=== PATIENT | female | born 2000 | race Caucasian/White ===

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

== ENCOUNTER 2022-02-10 19:39 | Emergency (ER) | payer BC, SELFPAY ==
[2022-02-10 19:47] VITALS: BP 110/71; PULSE 75; RESP 18; TEMP 36.8; O2SAT 97; BMI 20.7
--- NOTE | 2022-02-10 21:11 | ED_ITS ---
HPI - General Adult General Chief complaint: Ear Problems Stated complaint: ? right ear infection Time Seen by Provider: 02/10/22 21:11 Source: patient Mode of arrival: ambulatory Limitations: no limitations History of Present Illness HPI narrative: Patient is a 21 year old female presenting to the emergency department today with right ear tingling. Patient states that she has a history of Lyme disease and is concerned there is something in her right ear. Patient denies any dizziness, lightheadedness, abdominal pain, nausea, vomiting, fever, chills, blurry vision, double vision, loss of vision, chest pain, difficulty breathing, shortness of breath, back pain, night sweats, pain with urination, increased urinary frequency, increased urinary urgency, blood in her urine or stool, syncope or a near syncopal episode, recent trauma or falls, bowel incontinence, bladder incontinence, bowel retention, bladder retention, or any other complaints at this time. Onset (ago): hour(s) Radiation: non-radiation Relieving factors: none Exacerbating factors: none Associated symptoms: denies other symptoms Treatments prior to arrival: none Related Data Previous Rx's Medication Instructions Recorded ondansetron HCl 4 mg tablet 4 mg PO Q6H PRN #14 tab 06/23/21 (Zofran) lorazepam 0.5 mg tablet (Ativan) 0.5 mg PO Q6-8H PRN #7 tab 11/16/21 ondansetron HCl 4 mg tablet 4 mg PO Q6H PRN #10 tab 11/16/21 Allergies Allergy/AdvReac Type Severity Reaction Status Date / Time ciprofloxacin Allergy Intermediate Agitated Verified 02/10/22 19:50 Review of Systems Constitutional: Constitutional: Reports no additional constitutional complaints, Denies chills, Denies fever(s) and Denies night sweats Eyes: Eyes: Reports no additional eye complaints, Denies blurry vision, Denies change in vision, Denies diplopia, Denies eye discharge, Denies loss of vision and Denies eye pain ENT: Denies dizziness Comments: right ear tingling Cardiovascular: Cardiovascular: Reports no additional cardiovascular complaints, Denies chest pain, Denies lightheadedness, Denies Loss of Consci ousness and Denies dyspnea Respiratory: Respiratory: Reports no additional respiratory complaints and Denies dyspnea Gastrointestinal: Gastrointestinal: Reports no additional gastrointestinal complaints, Denies abdominal pain, Denies melena, Denies hematochezia, Denies change in bowel habits and Denies change in stool character Genitourinary: Genitourinary: Denies hematuria, Denies urinary frequency, Denies dysuria, Denies urinary incontinence, Denies urinary hesitancy and Denies urinary urgency Musculoskeletal: Musculoskeletal: Reports no additional musculoskeletal complaints, Denies numbness and Denies tingling Neurologic: Denies dizziness, Denies loss of vision, Denies numbness and Denies tingling Psychiatric: Psychiatric: Reports no additional psychiatric complaints Endocrine: Endocrine: Reports no additional endocrine complaints Hematologic/Lymphatic: Hematologic/Lymphatic: Reports no additional hematologic/lymphatic complaints Allergic/Immunologic: Allergic/Immunologic: Reports no additional allergic/immunologic complaints PMFSH Past Medical History Attestation statement: The following information was validated with the patient. Source: old records reviewed Medical History Patient denies significant medical history Social History Social History Patient Tobacco Use Status: Never used Tobacco Advance Directives: No Advance Directives Information Provided: No Patient : No Physical Exam ED Vital Signs: Vital Signs - 24 hr 02/10/22 19:47 Temperature 98.3 F Pulse Rate 75 Respiratory Rate 18 Blood Pressure 110/71 Pulse Oximetry 97 BMI result Body Mass Index 20.7 Const General: cooperative, no acute distress, alert and awake Nutritional Appearance: well nourished Orientation/consciousness: patient oriented x3 Limitations: no limitations [facility] Head: Yes normal to inspection and Yes atraumatic Ears: hearing grossly normal bilaterally and external ears normal General nose exam: Normal external nose present, no nasal discharge noted and no epistaxis Face and sinus: Yes normal facial exam, No abrasion and No laceration Mouth: Normal oral and palatal mucosa present, no drooling and no muffled voice Eyes General: appearance normal, both eyes and all related structures Periorbital: periorbital findings normal Eyelids: Yes eyelids normal Conjunctivae: conjunctivae normal Pupils: Equal, round and reactive pupils present EOM: EOMs intact bilaterally Neck Neck: Yes normal visual inspection, Yes full ROM and Yes no lymphadenopathy Chest Chest palpation & inspection: normal inspection of the chest Resp Effort & Inspection: normal respiratory effort and able to speak in complete sentences Auscultation: clear to auscultation bilaterally Cardio Rate: regular rate Rhythm: regular rhythm GI Inspection: Yes normal to inspection Neuro General: patient oriented x3 and moves all extremities Cranial nerves: Yes Equal, round and reactive pupils present Cognition (Neuro): normal cognition Motor exam (neuro): 5/5 motor strength present throughout Sensory Exam: Normal double simultaneous stimulation for sensation Coordination: [id number] test normal Extrem General: Yes normal to inspection, Yes full ROM and Yes capillary refill normal Psych Appearance: grossly normal Mental Status: mental status grossly normal Affect: normal affect Attitude: cooperative Thought process: Normal thought process present Thought content: Normal thought content present Insight: Good insight present (Psych) Medical Decision Making MDM Narrative Medical decision making narrative: Patient is a 21 year old female presenting to the emergency department today with right ear tingling. Patient's physical exam was unremarkable including a normal HEENT examination. I explained my physical exam findings to the patient. I answered all questions asked by the patient. I stressed the importance of the patient taking her medication as prescribed. I stressed the importance of the patient following up with her primary care provider. I stressed the importance of the patient returning to the emergency department immediately if her symptoms were to worsen or if she were to develop any dizziness, shortness of breath, difficulty breathing, chest pain, blurry vision, loss of vision, nausea, vomiting, abdominal pain, fever, chills, back pain, or any other complaints. Patient verbalized agreement and understanding with this treatment plan and discharge. Differential Diagnosis Differential Diagnosis: ear tingling, hx of lyme disease Medical Records Medical records reviewed: Yes I reviewed the patient's medical records. Discharge Plan Discharge Clinical Impression: Hx of Lyme disease Patient Disposition: Home, Self-Care Instructions: Lyme Disease (ED) Additional Instructions: Follow up with your primary care provider. Return to the emergency department immediately if your symptoms worsen or if you develop any dizziness, shortness of breath, difficulty breathing, chest pain, blurry vision, loss of vision, nausea, vomiting, abdominal pain, fever, chills, back pain, or any other complaints. Prescriptions: No Action ondansetron HCl [Zofran] 4 mg tablet 4 mg PO Q6H PRN (Reason: nausea and vomiting) Qty: 14 0RF lorazepam [Ativan] 0.5 mg tablet 0.5 mg PO Q6-8H PRN (Reason: anxiety) Qty: 7 0RF Rx Instructions: This medication can cause drowsiness so no driving for 6 hours after taking ondansetron HCl 4 mg tablet 4 mg PO Q6H PRN (Reason: nausea and vomiting) Qty: 10 0RF Referrals: Gloria Oakes PA-C [Primary Care Provider] - (Follow up with your PCP. ) Interventions: ED Discharge Assessment Last Done: 02/10/22 21:30 Discharge Date/Time: 02/10/22 21:31 Print Language: Setswana
== END 2022-02-10 21:31 | disposition home or self-care (01) ==
PROVIDERS: Emergency Provider Emergency Medicine; PCP Physician Assistant
DX: A69.20 Lyme disease, unspecified (principal); R20.2 Paresthesia of skin; Z79.899 Other long term (current) drug therapy
CPT/HCPCS: 99282; 99283

== ENCOUNTER 2022-04-25 22:52 | Emergency (ER) | payer BC, SELFPAY ==
--- NOTE | ~2022-04-25 | CT_ITS ---
EXAMINATION: CT ABDOMEN AND PELVIS WITHOUT CONTRAST CLINICAL INFORMATION: Lower abdominal pain with leukocytosis. COMPARISON: 11/25/2019 TECHNIQUE: Multidetector volumetric imaging was performed from the superior aspect of the liver through the pubic symphysis. Sagittal and coronal reformatted images were obtained on the technologist's workstation. This CT examination was performed using dose optimization techniques as appropriate, variously including the following: *Automated exposure control *Adjustment of mA and/or kV according to patient size (this includes techniques or standardized protocols for targeted exams where dose is matched to indication/reason for exam; i.e. extremities or head) *Use of iterative reconstruction technique DLP: 311 mGy-cm FINDINGS: LUNG BASES: The visualized lung bases are unremarkable. LIVER, GALLBLADDER, AND BILIARY TREE: The liver is normal in size, shape, and attenuation. No focal hepatic lesion or biliary ductal dilatation is present. The gallbladder is unremarkable with no evidence of radiopaque gallstones, gallbladder wall thickening, or obvious pericholecystic inflammatory changes. PANCREAS: Unremarkable. SPLEEN: Unremarkable. ADRENAL GLANDS: Unremarkable. KIDNEYS AND URETERS: The kidneys are normal in size, shape, and attenuation. No hydronephrosis, hydroureter, or calculi seen. No perinephric stranding. BLADDER: Unremarkable. GASTROINTESTINAL TRACT: The stomach is unremarkable. Normal caliber small bowel. No obstruction. No colonic wall thickening or inflammatory change. The appendix is not seen. No free air. Trace pelvic free fluid. ABDOMINAL WALL: No significant hernia is appreciated. LYMPH NODES: Normal. VASCULAR: Unremarkable. PELVIC VISCERA: The uterus and adnexa are unremarkable. OSSEOUS STRUCTURES: No acute or suspicious osseous abnormality. CT/CT abdomen pelvis wo con IMPRESSION: No acute findings in the abdomen or pelvis. Trace pelvic free fluid is likely physiologic. Otherwise no inflammatory changes throughout the abdomen or pelvis. Fleischner guidelines were followed.
--- NOTE | ~2022-04-25 | XR_ITS ---
EXAMINATION: XR CHEST CLINICAL INFORMATION: Leukocytosis COMPARISON: 11/27/2015 TECHNIQUE: Frontal view of the chest was obtained. FINDINGS: Hyperexpanded lungs. No consolidation, edema, or effusion. No pneumothorax. The cardiomediastinal silhouette is within normal limits. No osseous abnormality. XR/XR chest 1V IMPRESSION: Clear lungs.
--- NOTE | 2022-04-25 22:54 | ECG_ITS ---
Test Reason : chest pain Blood Pressure : / mmHG Vent. Rate : 076 BPM Atrial Rate : 076 BPM P-R Int : 104 ms QRS Dur : 078 ms QT Int : 368 ms P-R-T Axes : 063 062 012 degrees QTc Int : 414 ms Sinus rhythm with short VA Nonspecific T wave abnormality Abnormal ECG No previous ECGs available Referred By: Generic ED Physician Electronically Signed By:Hugo Valle
[2022-04-25 22:56] VITALS: BP 130/52; PULSE 88; RESP 18; TEMP 37; O2SAT 100; BMI 19.5
[2022-04-25 23:21] LABS: Hematocrit 40.2 % (37.0-47.0); Hemoglobin 14.3 g/dl (12.0-16.0); Mean Corpuscular HGB Conc 35.6 g/dl (31.0-35.0); Mean Corpuscular Hemoglobin 31.4 pg (27.0-33.0); Mean Corpuscular Volume 88.4 fL (80.0-98.0); Mean Platelet Volume 8.4 fL (9.4-12.3); Platelet Count 236 X10*3/uL (160-400); Red Blood Count 4.55 X10*6/uL (4.20-5.50); Red Cell Distribution Width 11.9 % (11.0-16.0)
[2022-04-25 23:22] LABS: Appearance Urine HAZY; Color Urine YELLOW; Glucose Urine UA NEG (NEG); Leukocyte Esterase Urine NEG (NEG); Nitrite Urine NEG (NEG); PH 8.5 (5.0-8.0); Specific Gravity - Urine 1.015 (1.005-1.025); Urine Blood NEG (NEG); Urine Ketones 5 MG/DL (NEG); Urine Protein NEG (NEG-TRACE)
[2022-04-25 23:24] LABS: UPreg QC Valid YES; Urine Pregnancy NEGATIVE (NEGATIVE)
[2022-04-25 23:30] LABS: WBC ABN SCTR FOR CBC 1
[2022-04-25 23:35] LABS: Amphetamine Screen Urine Not Detected (Not Detect); Barbiturates, Urine Not Detected (Not Detect); Benzodiazepines Screen Urine Not Detected (Not Detect); Cannabinoid Screen Urine POSITIVE (Not Detect); Cocaine Screen Urine Not Detected (Not Detect); Fentanyl, urine Not Detected (Not Detect); Opiate Screen Urine Not Detected (Not Detect); Phencyclidine Screen Urine Not Detected (Not Detect)
[2022-04-25 23:40] LABS: Alanine Aminotransferase 9 U/L (0-31); Albumin Level 4.6 g/dL (3.5-5.0); Alkaline Phosphatase 44 U/L (39-117); Anion Gap 15 (12-20); Aspartate Amino Transferase 13 U/L (5-31); Bilirubin Total 2.8 mg/dL (0.0-1.0); Blood Urea Nitrogen 8 mg/dL (9-16); Calcium 9.4 mg/dL (8.4-10.2); Carbon Dioxide 23 mmol/L (22-29); Chloride 103 mmol/L (96-108); Creatinine Clr Calc Pharmacy 78.3; Estimated Glomerular Filt Rate > 60; Glucose Random 105 mg/dL (60-115); Potassium 3.5 mmol/L (3.3-5.1); Sodium 137 mmol/L (135-145); Total Protein 7.2 g/dL (6.5-8.0); Troponin-I High Sensitivity < 3.5 ng/L (<3.5-17.0)
[2022-04-25 23:42] LABS: Band Neutrophils Percent 2 % (3-5); Lymphocytes Absolute Manual 0.9 X10*3/uL (1.2-4.9); Lymphocytes Percent Manual 4 % (20-40); Monocytes Absolute Manual 1.8 X10*3/uL (0.1-1.2); Monocytes Percent Manual 8 % (2-11); Neutrophils Absolute Manual 20.2 X10*3/uL (2.0-8.3); Neutrophils Percent Manual 86 % (45-73)
[2022-04-25 23:44] LABS: RBC Morphology NORMAL
[2022-04-25 23:45] LABS: Platelet Estimate NORMAL (NORMAL); Platelet Morphology Comment NORMAL; Toxic Vacuolation PRESENT
--- NOTE | 2022-04-26 01:08 | ED_ITS ---
HPI - Chest Pain General Chief Complaint: Chest Pain Stated Complaint: Chest pain/Vomiting Time Seen by Provider: 04/26/22 01:08 Source: patient Mode of arrival: ambulatory Limitations: no limitations History of Present Illness HPI narrative: Patient with history of anxiety increased stress at work been feeling very weak today nauseated vomited to 2 times complaining of sore throat body aches chest pain abdominal pain low-grade fever no chills also going of sore throat no other family member sick patient has not received COVID vaccine Related Data Previous Rx's Medication Instructions Recorded ondansetron HCl 4 mg tablet 4 mg PO Q6H PRN nausea and 06/23/21 (Zofran) vomiting #14 tabs lorazepam 0.5 mg tablet (Ativan) 0.5 mg PO Q6-8H PRN anxiety #7 tabs 11/16/21 ondansetron HCl 4 mg tablet 4 mg PO Q6H PRN nausea and 11/16/21 vomiting #10 tabs Allergies Allergy/AdvReac Type Severity Reaction Status Date / Time ciprofloxacin Allergy Intermediate Agitated Verified 02/10/22 19:50 Review of Systems Review of Systems: Yes all other systems are reviewed and are negative [facility] Past Medical History Medical History Patient denies significant medical history Social History Social History Patient Tobacco Use Status: Never used Tobacco Advance Directives: No Advance Directives Information Provided: No Physical Exam Vital Signs: Vital Signs: Last Vital Signs Temp 98.6 F 04/25/22 22:56 Pulse 88 04/25/22 22:56 Resp 18 04/25/22 22:56 BP 130/52 L 04/25/22 22:56 Pulse Ox 100 04/25/22 22:56 O2 Del Method 04/25/22 22:56 BMI result Body Mass Index 19.5 Appearance: Alert. Oriented X3. No acute distress. ENT: Pharynx normal. Oral Mucosa moist Neck: Normal inspection. Neck supple. Upper cervical lymph nodes enlarged CVS: Normal heart rate and rhythm. Pulses normal. Respiratory: No respiratory distress. Equal air entry bilateral, no wheezing/rales/rhonchi Abdomen: Soft and diffuse tenderness specially in the right side no rebound tenderness or guarding Bowel sounds are present, no mass palpable, no CVA tenderness Skin: Skin warm and dry. Normal skin color. Normal skin turgor. Extremities: No lower extremity edema. No calf tenderness Neuro: Oriented X 3. MDM - Chest Pain MDM Narrative Medical decision making narrative: 0150 Patient with significant leukocytosis 23,000With left shift with toxic vacualations, will check CT scan the abdomen to rule out occult pathology patient already status post appendectomy patient's strep throat and mono spot test negative possible could be leukemoid reaction Lab Data Attestation: I reviewed the patient's lab results. Result diagrams: 04/25/22 23:12 04/25/22 23:12 Labs: Lab Results 04/25/22 04/25/22 04/25/22 Range/Units 23:12 23:12 23:12 WBC 23.0 H (4.8-10.8) X10*3/uL RBC 4.55 (4.20-5.50) X10*6/uL Hgb 14.3 (12.0-16.0) g/dl Hct 40.2 (37.0-47.0) % MCV 88.4 (80.0-98.0) fL MCH 31.4 (27.0-33.0) pg MCHC 35.6 H (31.0-35.0) g/dl RDW 11.9 (11.0-16.0) % Plt Count 236 D (160-400) X10*3/uL MPV 8.4 L (9.4-12.3) fL Immature Gran % (Auto) Cancelled Neut % (Auto) Cancelled Lymph % (Auto) Cancelled [place] % (Auto) Cancelled Eos % (Auto) Cancelled Baso % (Auto) Cancelled Lymph # (Auto) Cancelled [place] # (Auto) Cancelled Eos # (Auto) Cancelled Baso # (Auto) Cancelled Abs Immat Gran (auto) Cancelled Absolute Neuts (auto) Cancelled Absolute Nucleated RBC 0.000 (0.0-0.012) X10*3/uL Nucleated RBC % (auto) 0.0 (0.0-0.2) /100WBC Neutrophils % (Manual) 86 H (45-73) % Band Neutrophils % 2 L (3-5) % Lymphocytes % (Manual) 4 L (20-40) % Monocytes % (Manual) 8 (2-11) % Abs Neuts (Manual) 20.2 H (2.0-8.3) X10*3/uL Lymphocytes # (Manual) 0.9 L (1.2-4.9) X10*3/uL Monocytes # (Manual) 1.8 H (0.1-1.2) X10*3/uL Toxic Vacuolation PRESENT Platelet Estimate NORMAL (NORMAL) Plt Morphology Comment NORMAL RBC Morphology NORMAL Sodium 137 (135-145) mmol/L Potassium 3.5 (3.3-5.1) mmol/L Chloride 103 (96-108) mmol/L Carbon Dioxide 23 (22-29) mmol/L Anion Gap 15 (12-20) BUN 8 L (9-16) mg/dL Creatinine 0.91 (0.5-1.4) mg/dL Estim Creat Clear Calc 78.3 Estimated GFR > 60 Random Glucose 105 (60-115) mg/dL Calcium 9.4 (8.4-10.2) mg/dL Total Bilirubin 2.8 H (0.0-1.0) mg/dL AST 13 D (5-31) U/L ALT 9 (0-31) U/L Alkaline Phosphatase 44 D (39-117) U/L Troponin I High Sens < 3.5 (<3.5-17.0) ng/L C-Reactive Protein 2.12 H (< or = 0.50) mg/dL Total Protein 7.2 (6.5-8.0) g/dL Albumin 4.6 D (3.5-5.0) g/dL Urine Color Urine Appearance Urine pH (5.0-8.0) Ur Specific [place] (1.005-1.025) Urine Protein (NEG-TRACE) MG/DL Urine Glucose (UA) (NEG) MG/DL Urine Ketones (NEG) MG/DL Urine Blood (NEG) Urine Nitrite (NEG) Ur Leukocyte Esterase (NEG) Urine Test (NEGATIVE) Urine Opiates Screen (Not Detect) Urine Fentanyl Screen (Not Detect) Ur Barbiturates Screen (Not Detect) Ur Phencyclidine Scrn (Not Detect) Ur Amphetamines Screen (Not Detect) U Benzodiazepines Scrn (Not Detect) Urine Cocaine Screen (Not Detect) U Marijuana (THC) Screen (Not Detect) Monoscreen (Negative) S. pyogenes GrpA CHITRA (Negative) 04/25/22 04/25/22 04/25/22 Range/Units 23:12 23:13 23:13 WBC (4.8-10.8) X10*3/uL RBC (4.20-5.50) X10*6/uL Hgb (12.0-16.0) g/dl Hct (37.0-47.0) % MCV (80.0-98.0) fL MCH (27.0-33.0) pg MCHC (31.0-35.0) g/dl RDW (11.0-16.0) % Plt Count (160-400) X10*3/uL MPV (9.4-12.3) fL Immature Gran % (Auto) Neut % (Auto) Lymph % (Auto) [place] % (Auto) Eos % (Auto) Baso % (Auto) Lymph # (Auto) [place] # (Auto) Eos # (Auto) Baso # (Auto) Abs Immat Gran (auto) Absolute Neuts (auto) Absolute Nucleated RBC (0.0-0.012) X10*3/uL Nucleated RBC % (auto) (0.0-0.2) /100WBC Neutrophils % (Manual) (45-73) % Band Neutrophils % (3-5) % Lymphocytes % (Manual) (20-40) % Monocytes % (Manual) (2-11) % Abs Neuts (Manual) (2.0-8.3) X10*3/uL Lymphocytes # (Manual) (1.2-4.9) X10*3/uL Monocytes # (Manual) (0.1-1.2) X10*3/uL Toxic Vacuolation Platelet Estimate (NORMAL) Plt Morphology Comment RBC Morphology Sodium (135-145) mmol/L Potassium (3.3-5.1) mmol/L Chloride (96-108) mmol/L Carbon Dioxide (22-29) mmol/L Anion Gap (12-20) BUN (9-16) mg/dL Creatinine (0.5-1.4) mg/dL Estim Creat Clear Calc Estimated GFR Random Glucose (60-115) mg/dL Calcium (8.4-10.2) mg/dL Total Bilirubin (0.0-1.0) mg/dL AST (5-31) U/L ALT (0-31) U/L Alkaline Phosphatase (39-117) U/L Troponin I High Sens (<3.5-17.0) ng/L C-Reactive Protein (< or = 0.50) mg/dL Total Protein (6.5-8.0) g/dL Albumin (3.5-5.0) g/dL Urine Color YELLOW Urine Appearance HAZY Urine pH 8.5 H (5.0-8.0) Ur Specific [place] 1.015 (1.005-1.025) Urine Protein NEG (NEG-TRACE) MG/DL Urine Glucose (UA) NEG (NEG) MG/DL Urine Ketones 5 (NEG) MG/DL Urine Blood NEG (NEG) Urine Nitrite NEG (NEG) Ur Leukocyte Esterase NEG (NEG) Urine Test NEGATIVE (NEGATIVE) Urine Opiates Screen (Not Detect) Urine Fentanyl Screen (Not Detect) Ur Barbiturates Screen (Not Detect) Ur Phencyclidine Scrn (Not Detect) Ur Amphetamines Screen (Not Detect) U Benzodiazepines Scrn (Not Detect) Urine Cocaine Screen (Not Detect) U Marijuana (THC) Screen (Not Detect) Monoscreen Negative (Negative) S. pyogenes GrpA CHITRA (Negative) 04/25/22 04/26/22 Range/Units 23:13 01:32 WBC (4.8-10.8) X10*3/uL RBC (4.20-5.50) X10*6/uL Hgb (12.0-16.0) g/dl Hct (37.0-47.0) % MCV (80.0-98.0) fL MCH (27.0-33.0) pg MCHC (31.0-35.0) g/dl RDW (11.0-16.0) % Plt Count (160-400) X10*3/uL MPV (9.4-12.3) fL Immature Gran % (Auto) Neut % (Auto) Lymph % (Auto) [place] % (Auto) Eos % (Auto) Baso % (Auto) Lymph # (Auto) [place] # (Auto) Eos # (Auto) Baso # (Auto) Abs Immat Gran (auto) Absolute Neuts (auto) Absolute Nucleated RBC (0.0-0.012) X10*3/uL Nucleated RBC % (auto) (0.0-0.2) /100WBC Neutrophils % (Manual) (45-73) % Band Neutrophils % (3-5) % Lymphocytes % (Manual) (20-40) % Monocytes % (Manual) (2-11) % Abs Neuts (Manual) (2.0-8.3) X10*3/uL Lymphocytes # (Manual) (1.2-4.9) X10*3/uL Monocytes # (Manual) (0.1-1.2) X10*3/uL Toxic Vacuolation Platelet Estimate (NORMAL) Plt Morphology Comment RBC Morphology Sodium (135-145) mmol/L Potassium (3.3-5.1) mmol/L Chloride (96-108) mmol/L Carbon Dioxide (22-29) mmol/L Anion Gap (12-20) BUN (9-16) mg/dL Creatinine (0.5-1.4) mg/dL Estim Creat Clear Calc Estimated GFR Random Glucose (60-115) mg/dL Calcium (8.4-10.2) mg/dL Total Bilirubin (0.0-1.0) mg/dL AST (5-31) U/L ALT (0-31) U/L Alkaline Phosphatase (39-117) U/L Troponin I High Sens (<3.5-17.0) ng/L C-Reactive Protein (< or = 0.50) mg/dL Total Protein (6.5-8.0) g/dL Albumin (3.5-5.0) g/dL Urine Color Urine Appearance Urine pH (5.0-8.0) Ur Specific [place] (1.005-1.025) Urine Protein (NEG-TRACE) MG/DL Urine Glucose (UA) (NEG) MG/DL Urine Ketones (NEG) MG/DL Urine Blood (NEG) Urine Nitrite (NEG) Ur Leukocyte Esterase (NEG) Urine Test (NEGATIVE) Urine Opiates Screen Not Detected (Not Detect) Urine Fentanyl Screen Not Detected (Not Detect) Ur Barbiturates Screen Not Detected (Not Detect) Ur Phencyclidine Scrn Not Detected (Not Detect) Ur Amphetamines Screen Not Detected (Not Detect) U Benzodiazepines Scrn Not Detected (Not Detect) Urine Cocaine Screen Not Detected (Not Detect) U Marijuana (THC) Screen POSITIVE H (Not Detect) Monoscreen (Negative) S. pyogenes GrpA CHITRA Negative (Negative) Discharge Plan Discharge Clinical Impression: Leukocytosis, Abdominal pain Patient Disposition: Still a Patient Prescriptions: No Action ondansetron HCl [Zofran] 4 mg tablet 4 mg PO Q6H PRN (Reason: nausea and vomiting) Qty: 14 0RF lorazepam [Ativan] 0.5 mg tablet 0.5 mg PO Q6-8H PRN (Reason: anxiety) Qty: 7 0RF Rx Instructions: This medication can cause drowsiness so no driving for 6 hours after taking ondansetron HCl 4 mg tablet 4 mg PO Q6H PRN (Reason: nausea and vomiting) Qty: 10 0RF
[2022-04-26 01:30] LABS: Monotest Negative (Negative)
[2022-04-26] MEDS: 0.9 % Sodium Chloride 1,000 ML 999 ML IV (01:33)
[2022-04-26] MEDS: ondansetron HCL 4 MG/2 ML VIAL IVPUSH (01:33)
[2022-04-26 01:35] LABS: C Reactive Protein 2.12 mg/dL (< or = 0.50)
[2022-04-26 01:54] LABS: Strep A Nucleic Acid Negative (Negative)
[2022-04-26] MEDS: LORazepam 2 MG/ML VIAL 0.5 MG IVPUSH (01:57)
[2022-04-26 02:00] VITALS: PULSE 81
[2022-04-26] MEDS: Piperacillin Sodium/Tazobactam 3.375 GM in 0.9 % Sodium Chloride 50 ML IV (02:13)
[2022-04-26 02:18] LABS: Lipase 19 U/L (8-78)
[2022-04-26 02:33] LABS: Lactic Acid 0.8 mmol/L (0.5-2.0)
--- NOTE | 2022-04-26 04:38 | ED_ITS ---
HPI - Chest Pain General Chief Complaint: Chest Pain Stated Complaint: Chest pain/Vomiting Time Seen by Provider: 04/26/22 01:08 Source: patient Mode of arrival: ambulatory Limitations: no limitations Related Data Previous Rx's Medication Instructions Recorded ondansetron HCl 4 mg tablet 4 mg PO Q6H PRN nausea and 06/23/21 (Zofran) vomiting #14 tabs lorazepam 0.5 mg tablet (Ativan) 0.5 mg PO Q6-8H PRN anxiety #7 tabs 11/16/21 ondansetron HCl 4 mg tablet 4 mg PO Q6H PRN nausea and 11/16/21 vomiting #10 tabs ondansetron 4 mg disintegrating 4 mg PO Q8H PRN nausea and 04/26/22 tablet vomiting #7 tabs Allergies Allergy/AdvReac Type Severity Reaction Status Date / Time ciprofloxacin Allergy Intermediate Agitated Verified 02/10/22 19:50 [facility] Past Medical History Medical History Patient denies significant medical history Social History Social History Patient Tobacco Use Status: Never used Tobacco Advance Directives: No Advance Directives Information Provided: No Physical Exam Vital Signs: Vital Signs: Last Vital Signs Temp 99.8 F 04/26/22 04:41 Pulse 92 04/26/22 04:41 Resp 18 04/26/22 04:41 BP 106/66 04/26/22 04:41 Pulse Ox 96 04/26/22 04:41 O2 Del Method 04/26/22 04:41 BMI result Body Mass Index 19.5 MDM - Chest Pain Lab Data Result diagrams: 04/25/22 23:12 04/25/22 23:12 Labs: Lab Results 04/25/22 04/25/22 04/25/22 Range/Units 23:12 23:12 23:12 WBC 23.0 H (4.8-10.8) X10*3/uL RBC 4.55 (4.20-5.50) X10*6/uL Hgb 14.3 (12.0-16.0) g/dl Hct 40.2 (37.0-47.0) % MCV 88.4 (80.0-98.0) fL MCH 31.4 (27.0-33.0) pg MCHC 35.6 H (31.0-35.0) g/dl RDW 11.9 (11.0-16.0) % Plt Count 236 D (160-400) X10*3/uL MPV 8.4 L (9.4-12.3) fL Immature Gran % (Auto) Cancelled Neut % (Auto) Cancelled Lymph % (Auto) Cancelled [place] % (Auto) Cancelled Eos % (Auto) Cancelled Baso % (Auto) Cancelled Lymph # (Auto) Cancelled [place] # (Auto) Cancelled Eos # (Auto) Cancelled Baso # (Auto) Cancelled Abs Immat Gran (auto) Cancelled Absolute Neuts (auto) Cancelled Absolute Nucleated RBC 0.000 (0.0-0.012) X10*3/uL Nucleated RBC % (auto) 0.0 (0.0-0.2) /100WBC Neutrophils % (Manual) 86 H (45-73) % Band Neutrophils % 2 L (3-5) % Lymphocytes % (Manual) 4 L (20-40) % Monocytes % (Manual) 8 (2-11) % Abs Neuts (Manual) 20.2 H (2.0-8.3) X10*3/uL Lymphocytes # (Manual) 0.9 L (1.2-4.9) X10*3/uL Monocytes # (Manual) 1.8 H (0.1-1.2) X10*3/uL Toxic Vacuolation PRESENT Platelet Estimate NORMAL (NORMAL) Plt Morphology Comment NORMAL RBC Morphology NORMAL Sodium 137 (135-145) mmol/L Potassium 3.5 (3.3-5.1) mmol/L Chloride 103 (96-108) mmol/L Carbon Dioxide 23 (22-29) mmol/L Anion Gap 15 (12-20) BUN 8 L (9-16) mg/dL Creatinine 0.91 (0.5-1.4) mg/dL Estim Creat Clear Calc 78.3 Estimated GFR > 60 Random Glucose 105 (60-115) mg/dL Lactic Acid (0.5-2.0) mmol/L Calcium 9.4 (8.4-10.2) mg/dL Total Bilirubin 2.8 H (0.0-1.0) mg/dL AST 13 D (5-31) U/L ALT 9 (0-31) U/L Alkaline Phosphatase 44 D (39-117) U/L Troponin I High Sens < 3.5 (<3.5-17.0) ng/L C-Reactive Protein 2.12 H (< or = 0.50) mg/dL Total Protein 7.2 (6.5-8.0) g/dL Albumin 4.6 D (3.5-5.0) g/dL Lipase 19 (8-78) U/L Urine Color Urine Appearance Urine pH (5.0-8.0) Ur Specific [place] (1.005-1.025) Urine Protein (NEG-TRACE) MG/DL Urine Glucose (UA) (NEG) MG/DL Urine Ketones (NEG) MG/DL Urine Blood (NEG) Urine Nitrite (NEG) Ur Leukocyte Esterase (NEG) Urine Test (NEGATIVE) Urine Opiates Screen (Not Detect) Urine Fentanyl Screen (Not Detect) Ur Barbiturates Screen (Not Detect) Ur Phencyclidine Scrn (Not Detect) Ur Amphetamines Screen (Not Detect) U Benzodiazepines Scrn (Not Detect) Urine Cocaine Screen (Not Detect) U Marijuana (THC) Screen (Not Detect) Monoscreen (Negative) S. pyogenes GrpA CHITRA (Negative) 04/25/22 04/25/22 04/25/22 Range/Units 23:12 23:13 23:13 WBC (4.8-10.8) X10*3/uL RBC (4.20-5.50) X10*6/uL Hgb (12.0-16.0) g/dl Hct (37.0-47.0) % MCV (80.0-98.0) fL MCH (27.0-33.0) pg MCHC (31.0-35.0) g/dl RDW (11.0-16.0) % Plt Count (160-400) X10*3/uL MPV (9.4-12.3) fL Immature Gran % (Auto) Neut % (Auto) Lymph % (Auto) [place] % (Auto) Eos % (Auto) Baso % (Auto) Lymph # (Auto) [place] # (Auto) Eos # (Auto) Baso # (Auto) Abs Immat Gran (auto) Absolute Neuts (auto) Absolute Nucleated RBC (0.0-0.012) X10*3/uL Nucleated RBC % (auto) (0.0-0.2) /100WBC Neutrophils % (Manual) (45-73) % Band Neutrophils % (3-5) % Lymphocytes % (Manual) (20-40) % Monocytes % (Manual) (2-11) % Abs Neuts (Manual) (2.0-8.3) X10*3/uL Lymphocytes # (Manual) (1.2-4.9) X10*3/uL Monocytes # (Manual) (0.1-1.2) X10*3/uL Toxic Vacuolation Platelet Estimate (NORMAL) Plt Morphology Comment RBC Morphology Sodium (135-145) mmol/L Potassium (3.3-5.1) mmol/L Chloride (96-108) mmol/L Carbon Dioxide (22-29) mmol/L Anion Gap (12-20) BUN (9-16) mg/dL Creatinine (0.5-1.4) mg/dL Estim Creat Clear Calc Estimated GFR Random Glucose (60-115) mg/dL Lactic Acid (0.5-2.0) mmol/L Calcium (8.4-10.2) mg/dL Total Bilirubin (0.0-1.0) mg/dL AST (5-31) U/L ALT (0-31) U/L Alkaline Phosphatase (39-117) U/L Troponin I High Sens (<3.5-17.0) ng/L C-Reactive Protein (< or = 0.50) mg/dL Total Protein (6.5-8.0) g/dL Albumin (3.5-5.0) g/dL Lipase (8-78) U/L Urine Color YELLOW Urine Appearance HAZY Urine pH 8.5 H (5.0-8.0) Ur Specific [place] 1.015 (1.005-1.025) Urine Protein NEG (NEG-TRACE) MG/DL Urine Glucose (UA) NEG (NEG) MG/DL Urine Ketones 5 (NEG) MG/DL Urine Blood NEG (NEG) Urine Nitrite NEG (NEG) Ur Leukocyte Esterase NEG (NEG) Urine Test NEGATIVE (NEGATIVE) Urine Opiates Screen (Not Detect) Urine Fentanyl Screen (Not Detect) Ur Barbiturates Screen (Not Detect) Ur Phencyclidine Scrn (Not Detect) Ur Amphetamines Screen (Not Detect) U Benzodiazepines Scrn (Not Detect) Urine Cocaine Screen (Not Detect) U Marijuana (THC) Screen (Not Detect) Monoscreen Negative (Negative) S. pyogenes GrpA CHITRA (Negative) 04/25/22 04/26/22 04/26/22 Range/Units 23:13 01:32 02:11 WBC (4.8-10.8) X10*3/uL RBC (4.20-5.50) X10*6/uL Hgb (12.0-16.0) g/dl Hct (37.0-47.0) % MCV (80.0-98.0) fL MCH (27.0-33.0) pg MCHC (31.0-35.0) g/dl RDW (11.0-16.0) % Plt Count (160-400) X10*3/uL MPV (9.4-12.3) fL Immature Gran % (Auto) Neut % (Auto) Lymph % (Auto) [place] % (Auto) Eos % (Auto) Baso % (Auto) Lymph # (Auto) [place] # (Auto) Eos # (Auto) Baso # (Auto) Abs Immat Gran (auto) Absolute Neuts (auto) Absolute Nucleated RBC (0.0-0.012) X10*3/uL Nucleated RBC % (auto) (0.0-0.2) /100WBC Neutrophils % (Manual) (45-73) % Band Neutrophils % (3-5) % Lymphocytes % (Manual) (20-40) % Monocytes % (Manual) (2-11) % Abs Neuts (Manual) (2.0-8.3) X10*3/uL Lymphocytes # (Manual) (1.2-4.9) X10*3/uL Monocytes # (Manual) (0.1-1.2) X10*3/uL Toxic Vacuolation Platelet Estimate (NORMAL) Plt Morphology Comment RBC Morphology Sodium (135-145) mmol/L Potassium (3.3-5.1) mmol/L Chloride (96-108) mmol/L Carbon Dioxide (22-29) mmol/L Anion Gap (12-20) BUN (9-16) mg/dL Creatinine (0.5-1.4) mg/dL Estim Creat Clear Calc Estimated GFR Random Glucose (60-115) mg/dL Lactic Acid 0.8 (0.5-2.0) mmol/L Calcium (8.4-10.2) mg/dL Total Bilirubin (0.0-1.0) mg/dL AST (5-31) U/L ALT (0-31) U/L Alkaline Phosphatase (39-117) U/L Troponin I High Sens (<3.5-17.0) ng/L C-Reactive Protein (< or = 0.50) mg/dL Total Protein (6.5-8.0) g/dL Albumin (3.5-5.0) g/dL Lipase (8-78) U/L Urine Color Urine Appearance Urine pH (5.0-8.0) Ur Specific [place] (1.005-1.025) Urine Protein (NEG-TRACE) MG/DL Urine Glucose (UA) (NEG) MG/DL Urine Ketones (NEG) MG/DL Urine Blood (NEG) Urine Nitrite (NEG) Ur Leukocyte Esterase (NEG) Urine Test (NEGATIVE) Urine Opiates Screen Not Detected (Not Detect) Urine Fentanyl Screen Not Detected (Not Detect) Ur Barbiturates Screen Not Detected (Not Detect) Ur Phencyclidine Scrn Not Detected (Not Detect) Ur Amphetamines Screen Not Detected (Not Detect) U Benzodiazepines Scrn Not Detected (Not Detect) Urine Cocaine Screen Not Detected (Not Detect) U Marijuana (THC) Screen POSITIVE H (Not Detect) Monoscreen (Negative) S. pyogenes GrpA CHITRA Negative (Negative) Discharge Plan Discharge Clinical Impression: Leukocytosis, Abdominal pain Patient Disposition: Home, Self-Care Instructions: Abdominal Pain (ED) Additional Instructions: Follow-up with your primary care provider on Thursday morning. Return to the ER for worsening symptoms. Prescriptions: New ondansetron 4 mg tablet,disintegrating 4 mg PO Q8H PRN (Reason: nausea and vomiting) Qty: 7 0RF No Action ondansetron HCl [Zofran] 4 mg tablet 4 mg PO Q6H PRN (Reason: nausea and vomiting) Qty: 14 0RF lorazepam [Ativan] 0.5 mg tablet 0.5 mg PO Q6-8H PRN (Reason: anxiety) Qty: 7 0RF Rx Instructions: This medication can cause drowsiness so no driving for 6 hours after taking ondansetron HCl 4 mg tablet 4 mg PO Q6H PRN (Reason: nausea and vomiting) Qty: 10 0RF Stand Alone Forms: Work/School Release Interventions: ED Discharge Assessment Last Done: 04/26/22 06:35 Discharge Date/Time: 04/26/22 06:35
[2022-04-26 04:41] VITALS: BP 106/66; PULSE 92; RESP 18; TEMP 37.7; O2SAT 96
[2022-04-26] MEDS: diphenhydrAMINE HCL 50 MG/ML VIAL 25 MG IVPUSH (04:43)
[2022-04-26] MEDS: Metoclopramide HCl 10 MG/2 ML VIAL IVPUSH (04:43)
--- NOTE | 2022-04-26 05:04 | PC.NURSE ---
Pt to be dischaqrged home when she started to vomit again, Dr Allred made aware, see MAR.
== END 2022-04-26 06:35 | disposition home or self-care (01) ==
PROVIDERS: Emergency Provider Internal Medicine
DX: R07.89 Other chest pain (principal); D72.829 Elevated white blood cell count, unspecified; R11.10 Vomiting, unspecified; R50.9 Fever, unspecified; Z20.822 Contact with and (suspected) exposure to COVID-19; Z79.899 Other long term (current) drug therapy
CPT/HCPCS: 36415; 71045; 74176; 80053; 80307; 81003; 81025; 83605; 83690; 84484; 85007; 85027; 86140; 86308; 87040; 87651; 93005; 96361; 96374; 96375; 99284; J1200; J2060; J2405; J2543; J2765

== ENCOUNTER 2022-05-21 06:00 | Emergency (ER) | payer BC, SELFPAY ==
--- NOTE | 2022-05-21 | ECG_ITS ---
Test Reason : cp Blood Pressure : / mmHG Vent. Rate : 089 BPM Atrial Rate : 089 BPM P-R Int : 128 ms QRS Dur : 080 ms QT Int : 348 ms P-R-T Axes : 074 072 001 degrees QTc Int : 423 ms Normal sinus rhythm Possible Left atrial enlargement Nonspecific T wave abnormality Abnormal ECG When compared with ECG of 25-APR-2022 22:49, No significant change was found Referred By: Generic ED Physician Electronically Signed By:EDU MARQUEZ MD
--- NOTE | ~2022-05-21 | XR_ITS ---
EXAMINATION: XR CHEST CLINICAL INFORMATION: Chest pain COMPARISON: None TECHNIQUE: Frontal view of the chest was obtained. FINDINGS: Lungs grossly clear. Heart and pulmonary vessels normal. XR/XR chest 1V IMPRESSION: No active disease.
[2022-05-21 06:04] VITALS: BP 110/69; PULSE 103; RESP 16; TEMP 37.3; O2SAT 97; BMI 19.5
[2022-05-21 07:08] VITALS: BP 110/53; PULSE 89; RESP 14; TEMP 37.1; O2SAT 99
--- NOTE | 2022-05-21 07:23 | ED.CHESTPAIN ---
HPI - Chest Pain General Chief Complaint: Chest Pain Stated Complaint: Vomiting Time Seen by Provider: 05/21/22 07:23 Source: patient and family (Mother) Mode of arrival: ambulatory Limitations: other (Anxiety) History of Present Illness HPI narrative: 21-year-old female who presents emergency department for evaluation of chest pain, nausea and vomiting. The patient has been having chest tightness for approximately 1 week, the mother states that she is being worked up for this chest pain and is going to get an outpatient stress test. The patient states that last night she developed nausea and vomiting. She states she has been vomiting continuously. On presentation the patient is actively vomiting and appears to be very anxious. She is not able to give a good history secondary to her distress Related Data Previous Rx's Medication Instructions Recorded ondansetron HCl 4 mg tablet 4 mg PO Q6H PRN nausea and 06/23/21 (Zofran) vomiting #14 tabs lorazepam 0.5 mg tablet (Ativan) 0.5 mg PO Q6-8H PRN anxiety #7 tabs 11/16/21 ondansetron HCl 4 mg tablet 4 mg PO Q6H PRN nausea and 11/16/21 vomiting #10 tabs ondansetron 4 mg disintegrating 4 mg PO Q8H PRN nausea and 04/26/22 tablet vomiting #7 tabs lorazepam 0.5 mg tablet (Ativan) 0.5 mg PO TID PRN anxiety #10 tabs 05/21/22 ondansetron 4 mg disintegrating 4 mg PO Q6-8H PRN nausea and 05/21/22 tablet vomiting #20 tabs Allergies Allergy/AdvReac Type Severity Reaction Status Date / Time ciprofloxacin Allergy Intermediate Agitated Verified 02/10/22 19:50 Review of Systems Review of Systems: Yes all other systems are reviewed and are negative [facility] Past Medical History [facility] Narrative: Past medical history: Lyme disease, anxiety. Past surgical history: None. Social history: She denies tobacco and alcohol use. She does smoke marijuana. Medical History Patient denies significant medical history Social History Social History Patient Tobacco Use Status: Never used Tobacco Substance Use Type: Marijuana Substance Use Frequency: Occasionally Last Used Substance: Hours (ago) Advance Directives: No Advance Directives Information Provided: No Physical Exam Vital Signs: Vital Signs: Last Vital Signs Temp 99.1 F 05/21/22 10:21 Pulse 92 05/21/22 10:21 Resp 18 05/21/22 10:21 BP 117/64 05/21/22 10:21 Pulse Ox 98 05/21/22 10:21 O2 Del Method 05/21/22 10:21 BMI result Body Mass Index 19.5 Const: Other: Awake, alert, female patient she is standing on the side of the bed, actively dry heaving, she is very anxious appearing, she is having difficulty answering questions secondary to stress, she defers to her mother the answer questions HEENT: Head: Yes normal to inspection, Yes normocephalic and Yes atraumatic Ears: external ears normal General nose exam: Normal external nose present Face and sinus: Yes normal facial exam Mouth: Normal oral and palatal mucosa present Throat: Yes posterior oropharynx normal Eyes: General: appearance normal, both eyes and all related structures Pupils: Equal, round and reactive pupils present Neck: Neck: Yes normal visual inspection, Yes no lymphadenopathy, Yes trachea midline and Yes supple Chest: Chest palpation & inspection: normal inspection of the chest and tenderness sternum Resp: Effort & Inspection: normal respiratory effort and able to speak in complete sentences Auscultation: clear to auscultation bilaterally Cardio: Rate: regular rate Rhythm: regular rhythm Heart sounds: S1 normal heart sound present, S2 normal heart sound present and no murmurs GI: Inspection: Yes normal to inspection Palpation (GI): Soft to palpation, Tenderness to palpation present (GI) in the epigastrum and no guarding Auscultation: normal bowel sounds : General: Yes no CVA tenderness Back/Spine/Pelvis: Back: no CVA tenderness Skin: General skin exam: no rashes or lesions noted Neuro: Cranial nerves: Yes CN's II-XII intact bilaterally and Yes Equal, round and reactive pupils present Cognition (Neuro): normal cognition Motor exam (neuro): 5/5 motor strength present throughout Extrem: General: Yes normal to inspection Psych: Appearance: grossly normal Speech and movement: Normal speech and movement present Affect: normal affect Attitude: cooperative Thought process: Normal thought process present Thought content: Normal thought content present Course Course Course Narrative: 21-year-old female who presents emergency department for evaluation of chest pain x1 week and nausea and vomiting since last night. Patient states that the vomiting has been continuous. Patient does appear to be very anxious on presentation. Patient's vital signs revealed tachycardia of 103 otherwise unremarkable. Sternal chest tenderness in epigastric tenderness. I did order laboratory evaluation to include CBC, CMP, lipase, urinalysis, urine drug screen, urine test. Patient was ordered to get Benadryl 50 mg IV, Reglan 10 mg IV and Toradol 15 mg IV. 1036: The patient is feeling better after the above treatment, she states she still is having nausea and a headache. The patient's mother states that often Ativan helps with her nausea and other symptoms. Patient was ordered to get Ativan 1 mg orally, Zofran 4 mg IV and Tylenol 975 orally for her headache. The patient will be discharged home with a prescription for Zofran and a very limited prescription for Ativan MDM - Chest Pain Medical Records Data Attestation: I reviewed the patient's medical records. Lab Data Attestation: I reviewed the patient's lab results. Result diagrams: 05/21/22 07:46 05/21/22 07:46 Labs: Lab Results 05/21/22 05/21/22 05/21/22 Range/Units 07:46 07:46 07:46 WBC 12.4 H (4.8-10.8) X10*3/uL RBC 4.35 (4.20-5.50) X10*6/uL Hgb 13.5 (12.0-16.0) g/dl Hct 39.2 (37.0-47.0) % MCV 90.1 (80.0-98.0) fL MCH 31.0 (27.0-33.0) pg MCHC 34.4 (31.0-35.0) g/dl RDW 12.2 (11.0-16.0) % Plt Count 241 (160-400) X10*3/uL MPV 8.4 L (9.4-12.3) fL Immature Gran % (Auto) 0.8 H (0.0-0.4) % Neut % (Auto) 87.8 H (45-73) % Lymph % (Auto) 3.5 L (20-40) % Appling % (Auto) 7.7 (2-11) % Eos % (Auto) 0.0 (0-4) % Baso % (Auto) 0.2 (0-2) % Lymph # (Auto) 0.4 L (1.2-4.9) X10*3/uL Appling # (Auto) 1.0 (0.1-1.2) X10*3/uL Eos # (Auto) 0.0 (0.0-0.4) X10*3/uL Baso # (Auto) 0.0 (0.0-0.2) X10*3/uL Abs Immat Gran (auto) 0.10 H (0.00-0.03) X10*3/uL Absolute Neuts (auto) 10.9 H (2.0-8.3) x10*3/uL Absolute Nucleated RBC 0.000 (0.0-0.012) X10*3/uL Nucleated RBC % (auto) 0.0 (0.0-0.2) /100WBC Sodium 141 (135-145) mmol/L Potassium 3.6 (3.3-5.1) mmol/L Chloride 106 (96-108) mmol/L Carbon Dioxide 23 (22-29) mmol/L Anion Gap 16 (12-20) BUN 6 L (9-16) mg/dL Creatinine 0.80 (0.5-1.4) mg/dL Estim Creat Clear Calc 89.1 Estimated GFR > 60 Random Glucose 111 (60-115) mg/dL Calcium 9.0 (8.4-10.2) mg/dL Total Bilirubin 1.3 H (0.0-1.0) mg/dL AST 13 (5-31) U/L ALT 9 (0-31) U/L Alkaline Phosphatase 42 (39-117) U/L Troponin I High Sens < 3.5 (<3.5-17.0) ng/L Total Protein 7.0 (6.5-8.0) g/dL Albumin 4.4 (3.5-5.0) g/dL Lipase 9 (8-78) U/L Ethyl Alcohol < 10 mg/dL ECG Data ECG #1: Attestation: I personally reviewed and interpreted this ECG as follows: Interpretation: 0738: Normal sinus rhythm rate of 90, normal MA interval, QRS duration QTC interval, inverted T-wave in V1 and V3 no ST segment elevation, no ST segment depression, no PACs, no PVCs no Q-waves, this is a normal EKG. Discharge Plan Discharge Clinical Impression: Chest pain, Vomiting, Anxiety Patient Disposition: Home, Self-Care Instructions: Acute Nausea and Vomiting (ED) Additional Instructions: Your blood work was unremarkable. Your chest x-ray was normal. Your 12 EKG was unremarkable. Take Zofran ODT 4 mg pills, 1 pill dissolved in your mouth every 8 hours as needed for nausea and vomiting. Take ibuprofen 200 mg pills, 3 pills every 6 hours as needed for pain. Take Tylenol (acetaminophen) 500 mg pills, 2 pills every 4 to 6 hours as needed for pain. Take Ativan 1 mg pills, 1 pill every 6 hours as needed for nausea, vomiting or anxiety. You can take this medication was Zofran. This medication is a benzodiazepine which can be addicting, if your concerned about addiction you can ask the pharmacist for less pills or you do not have to get the prescription filled. Follow-up with your doctor in 2 days. Please return to the emergency department if your symptoms get worse or if you develop any symptoms that are concerning to you. Prescriptions: New lorazepam [Ativan] 0.5 mg tablet 0.5 mg PO TID PRN (Reason: anxiety) Qty: 10 0RF Rx Instructions: patient may ask for partial fill ondansetron 4 mg tablet,disintegrating 4 mg PO Q6-8H PRN (Reason: nausea and vomiting) Qty: 20 0RF No Action ondansetron HCl [Zofran] 4 mg tablet 4 mg PO Q6H PRN (Reason: nausea and vomiting) Qty: 14 0RF lorazepam [Ativan] 0.5 mg tablet 0.5 mg PO Q6-8H PRN (Reason: anxiety) Qty: 7 0RF Rx Instructions: This medication can cause drowsiness so no driving for 6 hours after taking ondansetron HCl 4 mg tablet 4 mg PO Q6H PRN (Reason: nausea and vomiting) Qty: 10 0RF ondansetron 4 mg tablet,disintegrating 4 mg PO Q8H PRN (Reason: nausea and vomiting) Qty: 7 0RF
--- NOTE | 2022-05-21 07:28 | ECG_ITS ---
Test Reason : chest pain Blood Pressure : / mmHG Vent. Rate : 090 BPM Atrial Rate : 090 BPM P-R Int : 126 ms QRS Dur : 086 ms QT Int : 360 ms P-R-T Axes : 062 047 024 degrees QTc Int : 440 ms Normal sinus rhythm with sinus arrhythmia Non specific T wave changes When compared with ECG of 21-MAY-2022 06:17, No significant changes seen Referred By: Delmer Ya Electronically Signed By:EDU MARQUEZ MD
[2022-05-21 07:54] LABS: MANUAL DIFF FLAG NO
[2022-05-21] MEDS: diphenhydrAMINE HCL 50 MG/ML VIAL IVPUSH (08:01)
[2022-05-21] MEDS: Metoclopramide HCl 10 MG/2 ML VIAL IVPUSH (08:01)
[2022-05-21] MEDS: Ketorolac Tromethamine 15 MG/ML VIAL IVPUSH (08:01)
[2022-05-21] MEDS: 0.9 % Sodium Chloride 1,000 ML 999 ML IV (08:02)
[2022-05-21 08:04] LABS: Basophils Percent Auto 0.2 % (0-2); Hematocrit 39.2 % (37.0-47.0); Hemoglobin 13.5 g/dl (12.0-16.0); Imm Gran Pct Auto 0.8 % (0.0-0.4); Lymphocytes Absolute Auto 0.4 X10*3/uL (1.2-4.9); Lymphocytes Percent Auto 3.5 % (20-40); Mean Corpuscular HGB Conc 34.4 g/dl (31.0-35.0); Mean Corpuscular Volume 90.1 fL (80.0-98.0); Mean Platelet Volume 8.4 fL (9.4-12.3); Monocytes Percent Auto 7.7 % (2-11); Neutrophils Absolute Auto 10.9 x10*3/uL (2.0-8.3); Neutrophils Percent Auto 87.8 % (45-73); Platelet Count 241 X10*3/uL (160-400); Red Blood Count 4.35 X10*6/uL (4.20-5.50); Red Cell Distribution Width 12.2 % (11.0-16.0); White Blood Count 12.4 X10*3/uL (4.8-10.8)
[2022-05-21 08:16] LABS: Alanine Aminotransferase 9 U/L (0-31); Albumin Level 4.4 g/dL (3.5-5.0); Alkaline Phosphatase 42 U/L (39-117); Anion Gap 16 (12-20); Aspartate Amino Transferase 13 U/L (5-31); Bilirubin Total 1.3 mg/dL (0.0-1.0); Blood Urea Nitrogen 6 mg/dL (9-16); Carbon Dioxide 23 mmol/L (22-29); Chloride 106 mmol/L (96-108); Creatinine Clr Calc Pharmacy 89.1; Estimated Glomerular Filt Rate > 60; Ethanol < 10 mg/dL; Glucose Random 111 mg/dL (60-115); Lipase 9 U/L (8-78); Potassium 3.6 mmol/L (3.3-5.1); Sodium 141 mmol/L (135-145)
[2022-05-21 08:22] LABS: Troponin-I High Sensitivity < 3.5 ng/L (<3.5-17.0)
[2022-05-21 10:21] VITALS: BP 117/64; PULSE 92; RESP 18; TEMP 37.3; O2SAT 98
--- NOTE | 2022-05-21 10:25 | PC.NURSE ---
denies any chest pain. occ nausea but does have a headache and is thirsty
[2022-05-21] MEDS: Acetaminophen 325 MG TABLET 975 MG PO (10:49)
[2022-05-21] MEDS: LORazepam 1 MG TABLET PO (10:50)
[2022-05-21] MEDS: ondansetron HCL 4 MG/2 ML VIAL IVPUSH (10:50)
--- NOTE | 2022-05-21 11:03 | PC.NURSE ---
urine not obtained, could not Pee
[2022-05-21 11:19] VITALS: BP 143/86; PULSE 110; RESP 19; O2SAT 98
== END 2022-05-21 11:16 | disposition home or self-care (01) ==
PROVIDERS: Emergency Provider Emergency Medicine Emergency Medical Services; PCP Student in an Organized Health Care Education/Training Program
DX: R07.89 Other chest pain (principal); F41.1 Generalized anxiety disorder; F43.0 Acute stress reaction; R11.2 Nausea with vomiting, unspecified; Z79.899 Other long term (current) drug therapy
CPT/HCPCS: 36415; 71045; 80053; 82077; 83690; 84484; 85025; 87040; 93005; 96361; 96374; 96375; 99284; 99285; J1200; J1885; J2405; J2765

== ENCOUNTER 2023-01-25 13:37 | Emergency (ER) | payer BC, SELFPAY ==
[2023-01-25] VITALS (7 sets, daily range): BP systolic 100–114; BP diastolic 48–76; PULSE 53–100; RESP 16–18; TEMP 36–37.1; O2SAT 96–99; BMI 17.6
[2023-01-25 14:22] LABS: MANUAL DIFF FLAG NO
[2023-01-25] MEDS: 0.9 % Sodium Chloride 1,000 ML 999 ML IV (14:22)
[2023-01-25] MEDS: ondansetron HCL 4 MG/2 ML VIAL IVPUSH ×2 (14:22→18:39)
[2023-01-25 14:23] LABS: Basophils Absolute Auto 0.1 X10*3/uL (0.0-0.2); Basophils Percent Auto 0.7 % (0-2); Eosinophils Absolute Auto 0.1 X10*3/uL (0.0-0.4); Eosinophils Percent Auto 0.4 % (0-4); Hematocrit 43.9 % (37.0-47.0); Hemoglobin 15.3 g/dl (12.0-16.0); Imm Gran Abs Auto 0.06 X10*3/uL (0.00-0.03); Imm Gran Pct Auto 0.5 % (0.0-0.4); Lymphocytes Absolute Auto 3.4 X10*3/uL (1.2-4.9); Lymphocytes Percent Auto 26.6 % (20-40); Mean Corpuscular HGB Conc 34.9 g/dl (31.0-35.0); Mean Platelet Volume 8.7 fL (9.4-12.3); Monocytes Absolute Auto 0.7 X10*3/uL (0.1-1.2); Monocytes Percent Auto 5.2 % (2-11); Neutrophils Absolute Auto 8.4 x10*3/uL (2.0-8.3); Neutrophils Percent Auto 66.6 % (45-73); Platelet Count 286 X10*3/uL (160-400); Red Blood Count 4.93 X10*6/uL (4.20-5.50); Red Cell Distribution Width 11.5 % (11.0-16.0); White Blood Count 12.6 X10*3/uL (4.8-10.8)
--- NOTE | 2023-01-25 14:35 | ED_ITS ---
HPI - Abdominal Pain General Chief Complaint: Abdominal Pain <NOMAN Dimas Last Filed: 01/25/23 17:56> Stated Complaint: ABD PAIN,ANXIETY <NOMAN Dimas Last Filed: 01/25/23 17:56> Time Seen by Provider: 01/25/23 14:23 <NOMAN Dimas Last Filed: 01/25/23 17:56> Source: patient, EMS, RN notes reviewed and old records reviewed <NOMAN Dimas Last Filed: 01/25/23 17:56> Mode of arrival: EMS <NOMAN Dimas Last Filed: 01/25/23 17:56> History of Present Illness HPI narrative: 22-year-old female the past medical history of anxiety presenting to the ED via EMS complaining of severe anxiety since this morning with associated lightheadedness, SOB, chest discomfort, epigastric abdominal pain, nausea, vomi ting, & diarrhea. Reports the symptoms are typical of her acute anxiety attack. Took 20 mg of a friends Lexapro [employer] without improvement. Denies fever, chills, dysuria/hematuria, suspicious food intake <NOMAN Dimas Last Filed: 01/25/23 17:56> MD elicited complaint: abdominal pain <NOMAN Dimas Last Filed: 01/25/23 17:56> Related Data Home Medications: Previous Rx's Medication Instructions Recorded ondansetron HCl 4 mg tablet 4 mg PO Q6H PRN nausea and 06/23/21 (Zofran) vomiting #14 tabs lorazepam 0.5 mg tablet (Ativan) 0.5 mg PO Q6-8H PRN anxiety #7 tabs 11/16/21 ondansetron HCl 4 mg tablet 4 mg PO Q6H PRN nausea and 11/16/21 vomiting #10 tabs ondansetron 4 mg disintegrating 4 mg PO Q8H PRN nausea and 04/26/22 tablet vomiting #7 tabs lorazepam 0.5 mg tablet (Ativan) 0.5 mg PO TID PRN anxiety #10 tabs 05/21/22 ondansetron HCl 4 mg tablet 4 mg PO Q8H PRN nausea and 05/21/22 vomiting #20 tabs ondansetron 4 mg disintegrating 4 mg PO Q8H PRN nausea and 01/25/23 tablet vomiting #10 tabs <NOMAN Dimas Last Filed: 01/25/23 17:56> Allergies/Adverse Reactions: Allergies Allergy/AdvReac Type Severity Reaction Status Date / Time ciprofloxacin Allergy Intermediate Agitated Verified 01/25/23 13:55 <NOMAN Dimas Last Filed: 01/25/23 17:56> Review of Systems Review of Systems Constitutional: No Fever, No Chills, No Fatigue, No Malaise ENT/Mouth: No Ear Pain, No Nasal Congestion, No sore throat, No Rhinorrhea, No Swallowing Difficulty Eyes: No Eye Pain, No Swelling, No Redness, No Vision Changes Cardiovascular: + Chest Pain, + SOB, No Edema, No Palpitations Respiratory: No Cough, No Sputum, No Dyspnea Gastrointestinal: +Nausea, +Vomiting, +Diarrhea, No Constipation, +Abdominal pain Genitourinary: No Dysuria, No Urinary Frequency, No Hematuria, No Urinary Incontinence/retention, No Flank Pain Musculoskeletal: No joint pain, No Myalgias, No Joint Swelling Skin: No Skin Lesions, No rash Neuro: No Weakness, No Numbness, No Paresthesias, No Loss of Consciousness, No Dizziness, No Headache Psych: +anxious <NOMAN Dimas Last Filed: 01/25/23 17:56> Yes all other systems are reviewed and are negative <NOMAN Dimas Last Filed: 01/25/23 17:56> Constitutional: Reports as per HPI <NOMAN Dimas Last Filed: 01/25/23 17:56> [facility], [facility] Past Medical History Attestation statement: The following information was validated with the patient. <NOMAN Dimas Last Filed: 01/25/23 17:56> Medical History: Medical History Patient denies significant medical history <NOMAN Dimas Last Filed: 01/25/23 17:56> Social History Social History: Social History Patient Tobacco Use Status: Never used Tobacco Smoked in Last 30 Days: No Use of substances other than those prescribed or required for medical reasons: Yes Substance Use Type: Marijuana Substance Use Frequency: Occasionally Advance Directives: No Advance Directives Information Provided: No Patient : No <NOMAN Dimas - Last Filed: 01/25/23 17:56> Physical Exam ED Vital Signs: Vital Signs - 24 hr 01/25/23 13:48 01/25/23 15:32 01/25/23 16:00 Temperature 96.8 F 97.9 F Pulse Rate 53 59 57 Respiratory Rate 18 18 16 Blood Pressure 114/76 102/61 100/54 L Pulse Oximetry 99 99 96 Oxygen Delivery Method Room Air Room Air Room Air 01/25/23 16:07 01/25/23 17:25 01/25/23 18:40 Temperature 98.4 F 98.7 F Pulse Rate 66 60 73 Respiratory Rate 16 16 16 Blood Pressure 100/54 L 102/50 L 106/48 L Pulse Oximetry 97 98 Oxygen Delivery Method Room Air Room Air 01/25/23 19:34 Temperature 98.6 F Pulse Rate 61 Respiratory Rate 18 Blood Pressure 101/58 L Pulse Oximetry 98 Oxygen Delivery Method Room Air BMI result Body Mass Index 17.6 <NOMAN Dimas - Last Filed: 01/25/23 17:56> Vital Signs - 24 hr 01/25/23 13:48 01/25/23 15:32 01/25/23 16:00 Temperature 96.8 F 97.9 F Pulse Rate 53 59 57 Respiratory Rate 18 18 16 Blood Pressure 114/76 102/61 100/54 L Pulse Oximetry 99 99 96 Oxygen Delivery Method Room Air Room Air Room Air 01/25/23 16:07 01/25/23 17:25 01/25/23 18:40 Temperature 98.4 F 98.7 F Pulse Rate 66 60 73 Respiratory Rate 16 16 16 Blood Pressure 100/54 L 102/50 L 106/48 L Pulse Oximetry 97 98 Oxygen Delivery Method Room Air Room Air 01/25/23 19:34 Temperature 98.6 F Pulse Rate 61 Respiratory Rate 18 Blood Pressure 101/58 L Pulse Oximetry 98 Oxygen Delivery Method Room Air BMI result Body Mass Index 17.6 <Hai Jenkins - Last Filed: 01/25/23 20:02> Const General: cooperative, no acute distress and anxious <NOMAN Dimas - Last Filed: 01/25/23 17:56> Orientation/consciousness: patient oriented x3 <NOMAN Dimas - Last Filed: 01/25/23 17:56> Limitations: no limitations <NOMAN Dimas - Last Filed: 01/25/23 17:56> HENMT Head: Yes normal to inspection and Yes atraumatic <Rocio Rivero NM - Last Filed: 01/25/23 17:56> Ears: hearing grossly normal bilaterally <Rocio Rivero NM - Last Filed: 01/25/23 17:56> General nose exam: Normal external nose present <Rocio Rivero NM - Last Filed: 01/25/23 17:56> Face and sinus: Yes normal facial exam <NOMAN Dimas - Last Filed: 01/25/23 17:56> Eyes General: appearance normal, both eyes and all related structures <NOMAN Dimas - Last Filed: 01/25/23 17:56> EOM: EOMs intact bilaterally <Rocio Rivero [facility] Last Filed: 01/25/23 17:56> Neck Neck: Yes normal visual inspection and Yes no meningeal signs <NOMAN Dimas - Last Filed: 01/25/23 17:56> Resp Effort & Inspection: normal respiratory effort and no respiratory distress <Rocio Rivero [facility] Last Filed: 01/25/23 17:56> Auscultation: clear to auscultation bilaterally <NOMAN Dimas - Last Filed: 01/25/23 17:56> Cardio Rate: regular rate <Rocio Rivero [facility] Last Filed: 01/25/23 17:56> Heart sounds: S1 normal heart sound present and S2 normal heart sound present <NOMAN Dimas - Last Filed: 01/25/23 17:56> GI Inspection: Yes normal to inspection <NOMAN Dimas - Last Filed: 01/25/23 17:56> Palpation (GI): Soft to palpation, Tenderness to palpation present (GI) in the epigastrum; with no rebound tenderness, no guarding and not rigid <NOMAN Dimas - Last Filed: 01/25/23 17:56> General: Yes no CVA tenderness <NOMAN Dimas Last Filed: 01/25/23 17:56> Back/Spine/Pelvis Back: no CVA tenderness <NOMAN Dimas Last Filed: 01/25/23 17:56> Skin Rashes: no rashes <NOMAN Dimas Last Filed: 01/25/23 17:56> Wounds: no wounds <NOMAN Dimas Last Filed: 01/25/23 17:56> Neuro General: patient oriented x3, tone normal and no meningeal signs <NOMAN Dimas Last Filed: 01/25/23 17:56> Gait exam (Neuro): Normal gait present <NOMAN Dimas Last Filed: 01/25/23 17:56> Extrem General: Yes normal to inspection <NOMAN Dimas Last Filed: 01/25/23 17:56> Psych Affect: Anxious affect present <NOMAN Dimas Last Filed: 01/25/23 17:56> Course Course Course Narrative: -mild leukocytosis at 12.6 likely reactive from nausea/vomiting. Mild elevation in T bili and D bili > acute on chronic. Labs otherwise reassuring >1737--on re-evaluation patient reports symptomatic improvement. Abdomen soft and nontender. Will p.o. challenge -UA not infected. Patient tolerating p.o. in the ED. -1755--patient reports nausea when attempting to eat, did tolerate some crackers. Will give Zofran, Maalox, and re-evaluate. ED care transferred to NOMAN Cano pending re-evaluation and anticipated discharge home <NOMAN Dimas Last Filed: 01/25/23 17:56> Reevaluation(s) Reevaluation #1: Patient reports feeling much better and is requesting discharge at this time. <Hai Jenkins - Last Filed: 01/25/23 20:02> Time: 20:02 <Hai Jenkins - Last Filed: 01/25/23 20:02> Medical Decision Making Medical Decision Making MDM Narrative: 22-year-old female the past medical history of anxiety presenting to the ED via EMS complaining of severe anxiety since this morning with associated li ghtheadedness, SOB, chest discomfort, epigastric abdominal pain, nausea, vomiting, & diarrhea. On exam vital signs stable, NAD, nontoxic appearing, anxious, abdomen soft with mild epigastric tenderness palpation, no rebound or guarding. Concern for anxiety reaction vs GERD vs pancreatitis. Rule out ACS. Lower suspicion for cholecystitis/lithiasis, appendicitis/diverticulitis. Unlikely PE Plan: EKG, labs, UA, symptomatic remedies with IV Benadryl, Reglan, Pepcid Please refer to course for remaining clinical decision making, interpretation of labs/imaging results, and discussions with consultants and/or family members. <NOMAN Dimas - Last Filed: 01/25/23 17:56> Differential Diagnosis Differential Diagnoses: The differential diagnosis associated with the presentation includes <NOMAN Dimas - Last Filed: 01/25/23 17:56> As above <NOMAN Dimas - Last Filed: 01/25/23 17:56> Admission/Observation Consideration of admission/observation: Escalation of care including admission/observation considered <NOMAN Dimas - Last Filed: 01/25/23 17:56> Lab Data MDM Lab Attestation statement: I reviewed the patient's lab results. <NOMAN Dimas - Last Filed: 01/25/23 17:56> Result Diagrams: 01/25/23 14:18 01/25/23 14:18 <NOMAN Dimas - Last Filed: 01/25/23 17:56> Labs: Lab Results 01/25/23 01/25/23 01/25/23 Range/Units 14:18 14:18 17:29 WBC 12.6 H (4.8-10.8) X10*3/uL RBC 4.93 (4.20-5.50) X10*6/uL Hgb 15.3 (12.0-16.0) g/dl Hct 43.9 (37.0-47.0) % MCV 89.0 (80.0-98.0) fL MCH 31.0 (27.0-33.0) pg MCHC 34.9 (31.0-35.0) g/dl RDW 11.5 (11.0-16.0) % Plt Count 286 (160-400) X10*3/uL MPV 8.7 L (9.4-12.3) fL Immature Gran % (Auto) 0.5 H (0.0-0.4) % Neut % (Auto) 66.6 (45-73) % Lymph % (Auto) 26.6 (20-40) % [place] % (Auto) 5.2 (2-11) % Eos % (Auto) 0.4 (0-4) % Baso % (Auto) 0.7 (0-2) % Lymph # (Auto) 3.4 (1.2-4.9) X10*3/uL [place] # (Auto) 0.7 (0.1-1.2) X10*3/uL Eos # (Auto) 0.1 (0.0-0.4) X10*3/uL Baso # (Auto) 0.1 (0.0-0.2) X10*3/uL Abs Immat Gran (auto) 0.06 H (0.00-0.03) X10*3/uL Absolute Neuts (auto) 8.4 H (2.0-8.3) x10*3/uL Absolute Nucleated RBC 0.000 (0.0-0.012) X10*3/uL Nucleated RBC % (auto) 0.0 (0.0-0.2) /100WBC Sodium 140 (135-145) mmol/L Potassium 3.7 (3.3-5.1) mmol/L Chloride 108 (96-108) mmol/L Carbon Dioxide 22 (22-29) mmol/L Anion Gap 14 (12-20) BUN 8 L (9-16) mg/dL Creatinine 0.84 (0.5-1.4) mg/dL Estim Creat Clear Calc 76.4 Estimated GFR > 60 Random Glucose 152 H (60-115) mg/dL Calcium 9.5 (8.4-10.2) mg/dL Magnesium 1.8 (1.6-2.6) mg/dL Total Bilirubin 2.6 H (0.0-1.0) mg/dL Direct Bilirubin 0.6 H (0.0-0.5) mg/dL AST 14 (5-31) U/L ALT 11 (0-31) U/L Alkaline Phosphatase 43 (39-117) U/L Total Protein 7.1 (6.5-8.0) g/dL Albumin 4.6 (3.5-5.0) g/dL Lipase 13 (8-78) U/L Urine Color Dark Yellow Urine Appearance Cloudy Urine pH 5.5 (5.0-9.0) Ur Specific [place] 1.025 (1.005-1.025) Urine Protein Trace (Neg-Trace) mg/dL Urine Glucose (UA) Negative (Negative) mg/dL Urine Ketones 40 (Negative) mg/dL Urine Blood Trace H (Negative) Urine Nitrite Negative (Negative) Ur Leukocyte Esterase Negative (Negative) Urine RBC 0-2 (0-2) /HPF Urine WBC 0-5 (0-5) /HPF Ur Squamous Epith Cells 6-10 (0-2) /HPF Urine Bacteria None Seen (None Seen) Hyaline Casts 3-5 (0-2) /LPF Urine Test (NEGATIVE) 01/25/23 Range/Units 17:29 WBC (4.8-10.8) X10*3/uL RBC (4.20-5.50) X10*6/uL Hgb (12.0-16.0) g/dl Hct (37.0-47.0) % MCV (80.0-98.0) fL MCH (27.0-33.0) pg MCHC (31.0-35.0) g/dl RDW (11.0-16.0) % Plt Count (160-400) X10*3/uL MPV (9.4-12.3) fL Immature Gran % (Auto) (0.0-0.4) % Neut % (Auto) (45-73) % Lymph % (Auto) (20-40) % [place] % (Auto) (2-11) % Eos % (Auto) (0-4) % Baso % (Auto) (0-2) % Lymph # (Auto) (1.2-4.9) X10*3/uL [place] # (Auto) (0.1-1.2) X10*3/uL Eos # (Auto) (0.0-0.4) X10*3/uL Baso # (Auto) (0.0-0.2) X10*3/uL Abs Immat Gran (auto) (0.00-0.03) X10*3/uL Absolute Neuts (auto) (2.0-8.3) x10*3/uL Absolute Nucleated RBC (0.0-0.012) X10*3/uL Nucleated RBC % (auto) (0.0-0.2) /100WBC Sodium (135-145) mmol/L Potassium (3.3-5.1) mmol/L Chloride (96-108) mmol/L Carbon Dioxide (22-29) mmol/L Anion Gap (12-20) BUN (9-16) mg/dL Creatinine (0.5-1.4) mg/dL Estim Creat Clear Calc Estimated GFR Random Glucose (60-115) mg/dL Calcium (8.4-10.2) mg/dL Magnesium (1.6-2.6) mg/dL Total Bilirubin (0.0-1.0) mg/dL Direct Bilirubin (0.0-0.5) mg/dL AST (5-31) U/L ALT (0-31) U/L Alkaline Phosphatase (39-117) U/L Total Protein (6.5-8.0) g/dL Albumin (3.5-5.0) g/dL Lipase (8-78) U/L Urine Color Urine Appearance Urine pH (5.0-9.0) Ur Specific [place] (1.005-1.025) Urine Protein (Neg-Trace) mg/dL Urine Glucose (UA) (Negative) mg/dL Urine Ketones (Negative) mg/dL Urine Blood (Negative) Urine Nitrite (Negative) Ur Leukocyte Esterase (Negative) Urine RBC (0-2) /HPF Urine WBC (0-5) /HPF Ur Squamous Epith Cells (0-2) /HPF Urine Bacteria (None Seen) Hyaline Casts (0-2) /LPF Urine Test NEGATIVE (NEGATIVE) <NOMAN Dimas - Last Filed: 01/25/23 17:56> Lab Results 01/25/23 01/25/23 01/25/23 Range/Units 14:18 14:18 17:29 WBC 12.6 H (4.8-10.8) X10*3/uL RBC 4.93 (4.20-5.50) X10*6/uL Hgb 15.3 (12.0-16.0) g/dl Hct 43.9 (37.0-47.0) % MCV 89.0 (80.0-98.0) fL MCH 31.0 (27.0-33.0) pg MCHC 34.9 (31.0-35.0) g/dl RDW 11.5 (11.0-16.0) % Plt Count 286 (160-400) X10*3/uL MPV 8.7 L (9.4-12.3) fL Immature Gran % (Auto) 0.5 H (0.0-0.4) % Neut % (Auto) 66.6 (45-73) % Lymph % (Auto) 26.6 (20-40) % [place] % (Auto) 5.2 (2-11) % Eos % (Auto) 0.4 (0-4) % Baso % (Auto) 0.7 (0-2) % Lymph # (Auto) 3.4 (1.2-4.9) X10*3/uL [place] # (Auto) 0.7 (0.1-1.2) X10*3/uL Eos # (Auto) 0.1 (0.0-0.4) X10*3/uL Baso # (Auto) 0.1 (0.0-0.2) X10*3/uL Abs Immat Gran (auto) 0.06 H (0.00-0.03) X10*3/uL Absolute Neuts (auto) 8.4 H (2.0-8.3) x10*3/uL Absolute Nucleated RBC 0.000 (0.0-0.012) X10*3/uL Nucleated RBC % (auto) 0.0 (0.0-0.2) /100WBC Sodium 140 (135-145) mmol/L Potassium 3.7 (3.3-5.1) mmol/L Chloride 108 (96-108) mmol/L Carbon Dioxide 22 (22-29) mmol/L Anion Gap 14 (12-20) BUN 8 L (9-16) mg/dL Creatinine 0.84 (0.5-1.4) mg/dL Estim Creat Clear Calc 76.4 Estimated GFR > 60 Random Glucose 152 H (60-115) mg/dL Calcium 9.5 (8.4-10.2) mg/dL Magnesium 1.8 (1.6-2.6) mg/dL Total Bilirubin 2.6 H (0.0-1.0) mg/dL Direct Bilirubin 0.6 H (0.0-0.5) mg/dL AST 14 (5-31) U/L ALT 11 (0-31) U/L Alkaline Phosphatase 43 (39-117) U/L Total Protein 7.1 (6.5-8.0) g/dL Albumin 4.6 (3.5-5.0) g/dL Lipase 13 (8-78) U/L Urine Color Dark Yellow Urine Appearance Cloudy Urine pH 5.5 (5.0-9.0) Ur Specific [place] 1.025 (1.005-1.025) Urine Protein Trace (Neg-Trace) mg/dL Urine Glucose (UA) Negative (Negative) mg/dL Urine Ketones 40 (Negative) mg/dL Urine Blood Trace H (Negative) Urine Nitrite Negative (Negative) Ur Leukocyte Esterase Negative (Negative) Urine RBC 0-2 (0-2) /HPF Urine WBC 0-5 (0-5) /HPF Ur Squamous Epith Cells 6-10 (0-2) /HPF Urine Bacteria None Seen (None Seen) Hyaline Casts 3-5 (0-2) /LPF Urine Test (NEGATIVE) 01/25/23 Range/Units 17:29 WBC (4.8-10.8) X10*3/uL RBC (4.20-5.50) X10*6/uL Hgb (12.0-16.0) g/dl Hct (37.0-47.0) % MCV (80.0-98.0) fL MCH (27.0-33.0) pg MCHC (31.0-35.0) g/dl RDW (11.0-16.0) % Plt Count (160-400) X10*3/uL MPV (9.4-12.3) fL Immature Gran % (Auto) (0.0-0.4) % Neut % (Auto) (45-73) % Lymph % (Auto) (20-40) % [place] % (Auto) (2-11) % Eos % (Auto) (0-4) % Baso % (Auto) (0-2) % Lymph # (Auto) (1.2-4.9) X10*3/uL [place] # (Auto) (0.1-1.2) X10*3/uL Eos # (Auto) (0.0-0.4) X10*3/uL Baso # (Auto) (0.0-0.2) X10*3/uL Abs Immat Gran (auto) (0.00-0.03) X10*3/uL Absolute Neuts (auto) (2.0-8.3) x10*3/uL Absolute Nucleated RBC (0.0-0.012) X10*3/uL Nucleated RBC % (auto) (0.0-0.2) /100WBC Sodium (135-145) mmol/L Potassium (3.3-5.1) mmol/L Chloride (96-108) mmol/L Carbon Dioxide (22-29) mmol/L Anion Gap (12-20) BUN (9-16) mg/dL Creatinine (0.5-1.4) mg/dL Estim Creat Clear Calc Estimated GFR Random Glucose (60-115) mg/dL Calcium (8.4-10.2) mg/dL Magnesium (1.6-2.6) mg/dL Total Bilirubin (0.0-1.0) mg/dL Direct Bilirubin (0.0-0.5) mg/dL AST (5-31) U/L ALT (0-31) U/L Alkaline Phosphatase (39-117) U/L Total Protein (6.5-8.0) g/dL Albumin (3.5-5.0) g/dL Lipase (8-78) U/L Urine Color Urine Appearance Urine pH (5.0-9.0) Ur Specific [place] (1.005-1.025) Urine Protein (Neg-Trace) mg/dL Urine Glucose (UA) (Negative) mg/dL Urine Ketones (Negative) mg/dL Urine Blood (Negative) Urine Nitrite (Negative) Ur Leukocyte Esterase (Negative) Urine RBC (0-2) /HPF Urine WBC (0-5) /HPF Ur Squamous Epith Cells (0-2) /HPF Urine Bacteria (None Seen) Hyaline Casts (0-2) /LPF Urine Test NEGATIVE (NEGATIVE) <Hai Jenkins - Last Filed: 01/25/23 20:02> Radiology Impression Discussion of test interpretation with radiology: I have reviewed the radiologist's reading. <NOMAN Dimas - Last Filed: 01/25/23 17:56> External Record Review External record reviewed: Inpatient record, Office record, Outpatient record, Prior outpatient labs, Prior outpatient radiology, Primary care record and Outside ED record <NOMAN Dimas - Last Filed: 01/25/23 17:56> Medications Administered Discontinued Medications Generic Name Dose Route Start Last Admin Trade Name Freq PRN Reason Stop Dose Admin Al Hydroxide/Mg Hydroxide 30 ml 01/25/23 17:55 01/25/23 18:39 Magnesium Hydrox/Alum Hydrox 30 Ml Oral.Susp PO 01/25/23 17:56 30 ml ONCE ONE Administration Diphenhydramine HCl 25 mg 01/25/23 14:41 01/25/23 15:24 Diphenhydramine Hcl 50 Mg/Ml Vial IVPUSH 01/25/23 14:42 25 mg ONCE ONE Administration Famotidine 20 mg 01/25/23 14:41 01/25/23 15:25 Famotidine/Pf 20 Mg/2 Ml Vial IVPUSH 01/25/23 14:42 20 mg ONCE ONE Administration Sodium Chloride 1,000 mls @ 999 mls/hr 01/25/23 14:30 01/25/23 15:26 Ns IV 01/25/23 15:30 Infused .Q1H1M SMILEY Infusion Ketorolac Tromethamine 15 mg 01/25/23 14:41 01/25/23 15:25 Ketorolac Tromethamine 15 Mg/Ml Vial IVPUSH 01/25/23 14:42 15 mg ONCE ONE Administration Lorazepam 0.5 mg 01/25/23 14:41 01/25/23 16:07 Lorazepam 2 Mg/Ml Vial IVPUSH 01/25/23 14:42 0.5 mg STAT STA Administration Metoclopramide HCl 10 mg 01/25/23 14:41 01/25/23 15:24 Metoclopramide Hcl 10 Mg/2 Ml Vial IVPUSH 01/25/23 14:42 10 mg ONCE ONE Administration Ondansetron HCl 4 mg 01/25/23 14:16 01/25/23 14:22 Ondansetron Hcl 4 Mg/2 Ml Vial IVPUSH 01/25/23 14:17 4 mg ONCE ONE Administration Ondansetron HCl 4 mg 01/25/23 17:55 01/25/23 18:39 Ondansetron Hcl 4 Mg/2 Ml Vial IVPUSH 01/25/23 17:56 4 mg ONCE ONE Administration <NOMAN Dimas - Last Filed: 01/25/23 17:56> Medications Administered Discontinued Medications Generic Name Dose Route Start Last Admin Trade Name Freq PRN Reason Stop Dose Admin Al Hydroxide/Mg Hydroxide 30 ml 01/25/23 17:55 01/25/23 18:39 Magnesium Hydrox/Alum Hydrox 30 Ml Oral.Susp PO 01/25/23 17:56 30 ml ONCE ONE Administration Diphenhydramine HCl 25 mg 01/25/23 14:41 01/25/23 15:24 Diphenhydramine Hcl 50 Mg/Ml Vial IVPUSH 01/25/23 14:42 25 mg ONCE ONE Administration Famotidine 20 mg 01/25/23 14:41 01/25/23 15:25 Famotidine/Pf 20 Mg/2 Ml Vial IVPUSH 01/25/23 14:42 20 mg ONCE ONE Administration Sodium Chloride 1,000 mls @ 999 mls/hr 01/25/23 14:30 01/25/23 15:26 Ns IV 01/25/23 15:30 Infused .Q1H1M SMILEY Infusion Ketorolac Tromethamine 15 mg 01/25/23 14:41 01/25/23 15:25 Ketorolac Tromethamine 15 Mg/Ml Vial IVPUSH 01/25/23 14:42 15 mg ONCE ONE Administration Lorazepam 0.5 mg 01/25/23 14:41 01/25/23 16:07 Lorazepam 2 Mg/Ml Vial IVPUSH 01/25/23 14:42 0.5 mg STAT STA Administration Metoclopramide HCl 10 mg 01/25/23 14:41 01/25/23 15:24 Metoclopramide Hcl 10 Mg/2 Ml Vial IVPUSH 01/25/23 14:42 10 mg ONCE ONE Administration Ondansetron HCl 4 mg 01/25/23 14:16 01/25/23 14:22 Ondansetron Hcl 4 Mg/2 Ml Vial IVPUSH 01/25/23 14:17 4 mg ONCE ONE Administration Ondansetron HCl 4 mg 01/25/23 17:55 01/25/23 18:39 Ondansetron Hcl 4 Mg/2 Ml Vial IVPUSH 01/25/23 17:56 4 mg ONCE ONE Administration <Hai Jenkins - Last Filed: 01/25/23 20:02> Discharge Plan Discharge Clinical Impression: Acute anxiety, Abdominal pain <NOMAN Dimas - Last Filed: 01/25/23 17:56> Patient Disposition: Home, Self-Care <NOMAN Dimas Last Filed: 01/25/23 17:56> Instructions: Abdominal Pain (ED), Anxiety (ED) <NOMAN Dimas - Last Filed: 01/25/23 17:56> Additional Instructions: Please only take medication that is prescribed to you. Zofran as antinausea medication, take as needed for nausea and vomiting Practice a bland diet, avoid spicy foods, sweets, chocolate Please follow-up with her doctor. He should establish care with a therapist If symptoms persist or worsen return to the emergency department <NOMAN Dimas - Last Filed: 01/25/23 17:56> Prescriptions: New ondansetron 4 mg tablet,disintegrating 4 mg PO Q8H PRN (Reason: nausea and vomiting) Qty: 10 0RF No Action ondansetron HCl [Zofran] 4 mg tablet 4 mg PO Q6H PRN (Reason: nausea and vomiting) Qty: 14 0RF lorazepam [Ativan] 0.5 mg tablet 0.5 mg PO TID PRN (Reason: anxiety) Qty: 10 0RF Rx Instructions: patient may ask for partial fill ondansetron HCl 4 mg tablet 4 mg PO Q8H PRN (Reason: nausea and vomiting) Qty: 20 0RF lorazepam [Ativan] 0.5 mg tablet 0.5 mg PO Q6-8H PRN (Reason: anxiety) Qty: 7 0RF Rx Instructions: This medication can cause drowsiness so no driving for 6 hours after taking ondansetron HCl 4 mg tablet 4 mg PO Q6H PRN (Reason: nausea and vomiting) Qty: 10 0RF ondansetron 4 mg tablet,disintegrating 4 mg PO Q8H PRN (Reason: nausea and vomiting) Qty: 7 0RF <NOMAN Dimas - Last Filed: 01/25/23 17:56> Referrals: [facility] [Outside] Mandie Maravilla MD [Primary Care Provider] - 2 days <NOMAN Dimas - Last Filed: 01/25/23 17:56>
[2023-01-25 14:38] LABS: Alanine Aminotransferase 11 U/L (0-31); Albumin Level 4.6 g/dL (3.5-5.0); Alkaline Phosphatase 43 U/L (39-117); Anion Gap 14 (12-20); Aspartate Amino Transferase 14 U/L (5-31); Bilirubin Direct 0.6 mg/dL (0.0-0.5); Bilirubin Total 2.6 mg/dL (0.0-1.0); Blood Urea Nitrogen 8 mg/dL (9-16); Calcium 9.5 mg/dL (8.4-10.2); Carbon Dioxide 22 mmol/L (22-29); Chloride 108 mmol/L (96-108); Creatinine Clr Calc Pharmacy 76.4; Estimated Glomerular Filt Rate > 60; Glucose Random 152 mg/dL (60-115); Lipase 13 U/L (8-78); Potassium 3.7 mmol/L (3.3-5.1); Sodium 140 mmol/L (135-145); Total Protein 7.1 g/dL (6.5-8.0)
[2023-01-25 15:03] LABS: Magnesium 1.8 mg/dL (1.6-2.6)
[2023-01-25] MEDS: diphenhydrAMINE HCL 50 MG/ML VIAL 25 MG IVPUSH (15:24)
[2023-01-25] MEDS: Metoclopramide HCl 10 MG/2 ML VIAL IVPUSH (15:24)
[2023-01-25] MEDS: Famotidine/PF 20 MG/2 ML VIAL IVPUSH (15:25)
[2023-01-25] MEDS: Ketorolac Tromethamine 15 MG/ML VIAL IVPUSH (15:25)
--- NOTE | 2023-01-25 15:53 | ECG_ITS ---
Test Reason : ABDOMINAL PAIN Blood Pressure : / mmHG Vent. Rate : 060 BPM Atrial Rate : 060 BPM P-R Int : 124 ms QRS Dur : 084 ms QT Int : 472 ms P-R-T Axes : 071 070 063 degrees QTc Int : 472 ms Normal sinus rhythm Normal ECG When compared with ECG of 21-MAY-2022 07:38, Vent. rate has decreased BY 30 BPM Nonspecific T wave abnormality no longer evident in Inferior leads Referred By: Rocio Rivero Electronically Signed By:EDU MARQUEZ MD
[2023-01-25] MEDS: LORazepam 2 MG/ML VIAL 0.5 MG IVPUSH (16:07)
[2023-01-25 17:39] LABS: Appearance Urine Cloudy; Color Urine Dark Yellow; Glucose Urine UA Negative (Negative); Leukocyte Esterase Urine Negative (Negative); Nitrite Urine Negative (Negative); PH 5.5 (5.0-9.0); Specific Gravity - Urine 1.025 (1.005-1.025); UMIC TRIGGER UACC YES; Urine Blood Trace (Negative); Urine Ketones 40 mg/dL (Negative); Urine Protein Trace mg/dL (Neg-Trace)
[2023-01-25 17:42] LABS: UPreg QC Valid YES; Urine Pregnancy NEGATIVE (NEGATIVE)
[2023-01-25 17:44] LABS: Bacteria Urine None Seen (None Seen); RBC Urine 0-2 /HPF (0-2); WBC Urine 0-5 /HPF (0-5)
--- NOTE | 2023-01-25 17:56 | PC.NURSE ---
pt attempted to have saltine crackers and nadege kvng but not tolerating well, pt is requesting more nausea medication
[2023-01-25] MEDS: Magnesium Hydrox/Alum Hydrox 30 ML ORAL.SUSP PO (18:39)
--- NOTE | 2023-01-25 19:12 | PC.NURSE ---
pt requesting discharge at this time
== END 2023-01-25 20:17 | disposition home or self-care (01) ==
PROVIDERS: Physician Assistant; Emergency Provider Emergency Medicine; PCP Pediatrics
DX: F41.1 Generalized anxiety disorder (principal); F43.0 Acute stress reaction; R10.9 Unspecified abdominal pain; R06.02 Shortness of breath; R07.89 Other chest pain; R11.2 Nausea with vomiting, unspecified; Z79.899 Other long term (current) drug therapy
CPT/HCPCS: 36415; 80048; 80076; 81001; 81025; 83690; 83735; 85025; 93005; 96361; 96374; 96375; 96376; 99285; J1200; J1885; J2060; J2405; J2765

== ENCOUNTER 2023-01-30 10:10 | Emergency (ER) | payer BC, SELFPAY ==
[2023-01-30 10:13] VITALS: BP 110/67; PULSE 67; O2SAT 100
[2023-01-30 10:14] VITALS: BP 109/84; PULSE 80; RESP 18; TEMP 36.2; O2SAT 98; BMI 17.6
[2023-01-30 10:42] LABS: MANUAL DIFF FLAG NO
[2023-01-30 10:43] LABS: Basophils Absolute Auto 0.1 X10*3/uL (0.0-0.2); Basophils Percent Auto 0.7 % (0-2); Eosinophils Percent Auto 0.3 % (0-4); Hematocrit 45.3 % (37.0-47.0); Hemoglobin 16.1 g/dl (12.0-16.0); Imm Gran Abs Auto 0.03 X10*3/uL (0.00-0.03); Imm Gran Pct Auto 0.3 % (0.0-0.4); Lymphocytes Absolute Auto 1.8 X10*3/uL (1.2-4.9); Lymphocytes Percent Auto 18.3 % (20-40); Mean Corpuscular HGB Conc 35.5 g/dl (31.0-35.0); Mean Corpuscular Volume 87.3 fL (80.0-98.0); Mean Platelet Volume 8.5 fL (9.4-12.3); Monocytes Absolute Auto 0.5 X10*3/uL (0.1-1.2); Monocytes Percent Auto 4.9 % (2-11); Neutrophils Absolute Auto 7.6 x10*3/uL (2.0-8.3); Neutrophils Percent Auto 75.5 % (45-73); Platelet Count 294 X10*3/uL (160-400); Red Blood Count 5.19 X10*6/uL (4.20-5.50); Red Cell Distribution Width 11.4 % (11.0-16.0); White Blood Count 10.1 X10*3/uL (4.8-10.8)
[2023-01-30 11:04] LABS: Alanine Aminotransferase 9 U/L (0-31); Albumin Level 4.9 g/dL (3.5-5.0); Alkaline Phosphatase 45 U/L (39-117); Anion Gap 14 (12-20); Aspartate Amino Transferase 11 U/L (5-31); Bilirubin Direct 0.4 mg/dL (0.0-0.5); Bilirubin Total 1.9 mg/dL (0.0-1.0); Blood Urea Nitrogen 10 mg/dL (9-16); Calcium 9.6 mg/dL (8.4-10.2); Carbon Dioxide 21 mmol/L (22-29); Chloride 108 mmol/L (96-108); Estimated Glomerular Filt Rate > 60; Glucose Random 106 mg/dL (60-115); Potassium 3.9 mmol/L (3.3-5.1); Sodium 139 mmol/L (135-145); Total Protein 7.3 g/dL (6.5-8.0)
[2023-01-30] MEDS: LORazepam 2 MG/ML VIAL 1 MG IVPUSH (12:59)
[2023-01-30] MEDS: 0.9 % Sodium Chloride 1,000 ML 999 ML IVCONT (12:59)
[2023-01-30] MEDS: ondansetron HCL 4 MG/2 ML VIAL IVPUSH (12:59)
--- NOTE | 2023-01-30 14:35 | ED.GENADULT ---
HPI - General Adult General Chief complaint: Abdominal Pain Stated complaint: ABD PAIN/N/V/ANXIETY X 5 DAYS Time Seen by Provider: 01/30/23 12:12 History of Present Illness HPI narrative: Patient complains of abdominal pain off and on for several months associated with anxiety attacks and feeling anxious, and frequent feeling nauseous as well She was seen in the emergency department several days ago and was treated with Ativan and Zofran, labs were checked and she left the department feeling improved Right now she is having the same epigastric abdominal discomfort, she is feeling very anxious she is feeling nauseous but has not vomited, she is tolerating p.o. She is in the process of getting a primary care doctor and hopes to be treated for her anxiety, right now she is not taking any medications, she is not suicidal homicidal she does not hear voices , she has no shortness of breath no chest pain Related Data Previous Rx's Medication Instructions Recorded ondansetron HCl 4 mg tablet 4 mg PO Q6H PRN nausea and 06/23/21 (Zofran) vomiting #14 tabs lorazepam 0.5 mg tablet (Ativan) 0.5 mg PO Q6-8H PRN anxiety #7 tabs 11/16/21 ondansetron HCl 4 mg tablet 4 mg PO Q6H PRN nausea and 11/16/21 vomiting #10 tabs ondansetron 4 mg disintegrating 4 mg PO Q8H PRN nausea and 04/26/22 tablet vomiting #7 tabs lorazepam 0.5 mg tablet (Ativan) 0.5 mg PO TID PRN anxiety #10 tabs 05/21/22 ondansetron HCl 4 mg tablet 4 mg PO Q8H PRN nausea and 05/21/22 vomiting #20 tabs ondansetron 4 mg disintegrating 4 mg PO Q8H PRN nausea and 01/25/23 tablet vomiting #10 tabs famotidine 20 mg tablet (Pepcid) 20 mg PO DAILY #14 tabs 01/30/23 lorazepam 0.5 mg tablet (Ativan) 0.5 mg PO BID PRN anxiety #10 tabs 01/30/23 lorazepam 0.5 mg tablet (Ativan) 0.5 mg PO BID PRN anxiety #10 tabs 01/30/23 ondansetron 4 mg disintegrating 4 mg PO Q6H Nausea #10 tabs 01/30/23 tablet Allergies Allergy/AdvReac Type Severity Reaction Status Date / Time ciprofloxacin Allergy Intermediate Agitated Verified 01/25/23 13:55 escitalopram [From Lexapro] AdvReac Nausea and Verified 01/30/23 10:24 Vomiting PMF Past Medical History Source: nursing notes reviewed Medical History Patient denies significant medical history Social History Social History Patient Tobacco Use Status: Never used Tobacco Substance Use Type: Marijuana Advance Directives: No Advance Directives Information Provided: No Physical Exam ED Vital Signs: Vital Signs - 24 hr 01/30/23 10:14 Temperature 97.1 F Pulse Rate 80 Respiratory Rate 18 Blood Pressure 109/84 Pulse Oximetry 98 BMI result Body Mass Index 17.6 General appearance no acute distress Eyes anicteric no pallor The pharynx the mucous membranes are moist no redness swelling or exudate voice is normal Neck is supple Chest is clear to auscultation with full symmetric equal breath sounds Heart no murmur Abdomen soft, there is very mild epigastric tenderness there is no rebound no guarding, there is no other tenderness in the abdomen Extremities full range of motion x4 Neuro cranial nerves 2-12 intact, no facial asymmetry, interaction comprehension and expression are normal, gait balance are normal, motor is 5/5 x4 Course Course Course Narrative: Patient was re-evaluated after administration of Ativan and Zofran and she is tolerating p.o., her abdominal pain is improved, repeat exam of abdomen remains nontender, patient is tolerating p.o. She is discharged with the medication as needed for anxiety and nausea and a trial of Pepcid She is well-appearing, improved and is discharged Medications Administered Discontinued Medications Generic Name Dose Route Start Last Admin Trade Name Freq PRN Reason Stop Dose Admin Sodium Chloride 1,000 mls @ 999 mls/hr 01/30/23 12:45 01/30/23 14:49 Ns IVCONT 01/30/23 13:45 Infused .Q1H1M SMILEY Infusion Lorazepam 1 mg 01/30/23 12:19 01/30/23 12:24 Lorazepam 1 Mg Tablet PO 01/30/23 12:20 Not Given ONCE ONE Lorazepam 1 mg 01/30/23 12:36 01/30/23 12:59 Lorazepam 2 Mg/Ml Vial IVPUSH 01/30/23 12:37 1 mg ONCE ONE Administration Ondansetron HCl 4 mg 01/30/23 12:19 01/30/23 12:24 Ondansetron Odt 4 Mg Tab.Rapdis TRANSLINGU 01/30/23 12:20 Not Given ONCE ONE Ondansetron HCl 4 mg 01/30/23 12:36 01/30/23 12:59 Ondansetron Hcl 4 Mg/2 Ml Vial IVPUSH 01/30/23 12:37 4 mg ONCE ONE Administration Medical Decision Making Lab Data 01/30/23 10:37 01/30/23 10:37 Labs: Lab Results 01/30/23 01/30/23 Range/Units 10:37 10:37 WBC 10.1 (4.8-10.8) X10*3/uL RBC 5.19 (4.20-5.50) X10*6/uL Hgb 16.1 H (12.0-16.0) g/dl Hct 45.3 (37.0-47.0) % MCV 87.3 (80.0-98.0) fL MCH 31.0 (27.0-33.0) pg MCHC 35.5 H (31.0-35.0) g/dl RDW 11.4 (11.0-16.0) % Plt Count 294 (160-400) X10*3/uL MPV 8.5 L (9.4-12.3) fL Immature Gran % (Auto) 0.3 (0.0-0.4) % Neut % (Auto) 75.5 H (45-73) % Lymph % (Auto) 18.3 L (20-40) % [place] % (Auto) 4.9 (2-11) % Eos % (Auto) 0.3 (0-4) % Baso % (Auto) 0.7 (0-2) % Lymph # (Auto) 1.8 (1.2-4.9) X10*3/uL [place] # (Auto) 0.5 (0.1-1.2) X10*3/uL Eos # (Auto) 0.0 (0.0-0.4) X10*3/uL Baso # (Auto) 0.1 (0.0-0.2) X10*3/uL Abs Immat Gran (auto) 0.03 (0.00-0.03) X10*3/uL Absolute Neuts (auto) 7.6 (2.0-8.3) x10*3/uL Absolute Nucleated RBC 0.000 (0.0-0.012) X10*3/uL Nucleated RBC % (auto) 0.0 (0.0-0.2) /100WBC Sodium 139 (135-145) mmol/L Potassium 3.9 (3.3-5.1) mmol/L Chloride 108 (96-108) mmol/L Carbon Dioxide 21 L (22-29) mmol/L Anion Gap 14 (12-20) BUN 10 (9-16) mg/dL Creatinine 0.88 (0.5-1.4) mg/dL Estim Creat Clear Calc 73.0 Estimated GFR > 60 Random Glucose 106 (60-115) mg/dL Calcium 9.6 (8.4-10.2) mg/dL Total Bilirubin 1.9 H (0.0-1.0) mg/dL Direct Bilirubin 0.4 (0.0-0.5) mg/dL AST 11 (5-31) U/L ALT 9 (0-31) U/L Alkaline Phosphatase 45 (39-117) U/L Total Protein 7.3 (6.5-8.0) g/dL Albumin 4.9 (3.5-5.0) g/dL Discharge Plan Discharge Clinical Impression: Anxiety, Abdominal pain Patient Disposition: Home, Self-Care Additional Instructions: We are trying Pepcid for the abdominal pain Zofran if needed for nausea Ativan if needed for anxiety Follow closely with primary doctor Return to ER any time for any worse abdominal pain, uncontrolled vomiting, dehydration any concerns Prescriptions: New lorazepam [Ativan] 0.5 mg tablet 0.5 mg PO BID PRN (Reason: anxiety) Qty: 10 0RF famotidine [Pepcid] 20 mg tablet 20 mg PO DAILY Qty: 14 0RF ondansetron 4 mg tablet,disintegrating 4 mg PO Q6H Qty: 10 0RF lorazepam [Ativan] 0.5 mg tablet 0.5 mg PO BID PRN (Reason: anxiety) Qty: 10 0RF No Action ondansetron HCl [Zofran] 4 mg tablet 4 mg PO Q6H PRN (Reason: nausea and vomiting) Qty: 14 0RF lorazepam [Ativan] 0.5 mg tablet 0.5 mg PO TID PRN (Reason: anxiety) Qty: 10 0RF Rx Instructions: patient may ask for partial fill ondansetron HCl 4 mg tablet 4 mg PO Q8H PRN (Reason: nausea and vomiting) Qty: 20 0RF lorazepam [Ativan] 0.5 mg tablet 0.5 mg PO Q6-8H PRN (Reason: anxiety) Qty: 7 0RF Rx Instructions: This medication can cause drowsiness so no driving for 6 hours after taking ondansetron HCl 4 mg tablet 4 mg PO Q6H PRN (Reason: nausea and vomiting) Qty: 10 0RF ondansetron 4 mg tablet,disintegrating 4 mg PO Q8H PRN (Reason: nausea and vomiting) Qty: 7 0RF ondansetron 4 mg tablet,disintegrating 4 mg PO Q8H PRN (Reason: nausea and vomiting) Qty: 10 0RF Interventions: ED Discharge Assessment Last Done: 01/30/23 14:53 Discharge Date/Time: 01/30/23 15:05
== END 2023-01-30 15:05 | disposition home or self-care (01) ==
PROVIDERS: Emergency Provider Emergency Medicine
DX: F41.9 Anxiety disorder, unspecified (principal); R10.13 Epigastric pain; R11.0 Nausea; Z79.899 Other long term (current) drug therapy
CPT/HCPCS: 36415; 80048; 80076; 85025; 96361; 96374; 96375; 99283; 99284; J2060; J2405

== ENCOUNTER 2023-02-01 09:32 | Emergency (ER) | payer BC, SELFPAY ==
--- NOTE | ~2023-02-01 | CT_ITS ---
EXAMINATION: CT ABDOMEN AND PELVIS WITH CONTRAST CLINICAL INFORMATION: Diarrhea COMPARISON: CT abdomen pelvis 04/26/2022 TECHNIQUE: Multidetector volumetric images were obtained from the superior aspect of the liver through the pubic symphysis following administration 85 mL of Omnipaque 350 intravenous contrast. Sagittal and coronal reformatted images were obtained on the technologist's workstation. Oral contrast: No This CT examination was performed using dose optimization techniques as appropriate, variously including the following: *Automated exposure control *Adjustment of mA and/or kV according to patient size (this includes techniques or standardized protocols for targeted exams where dose is matched to indication/reason for exam; i.e. extremities or head) *Use of iterative reconstruction technique DLP: 268 mGy-cm FINDINGS: LUNG BASES: Unremarkable. ABDOMINAL AND PELVIC WALL: Unremarkable. LIVER AND BILIARY TREE: Nonspecific periportal edema. GALLBLADDER: Unremarkable. PANCREAS: Unremarkable. SPLEEN: Unremarkable. ADRENAL GLANDS: Unremarkable. KIDNEYS AND URETERS: Circumaortic left renal vein. GASTROINTESTINAL TRACT: Subtle pericolonic and mesenteric fat stranding for example along the ascending colon, 3:40 and sigmoid colon, 3:60. The appendix is not identified with certainty, however there is no dilated tubular structure in the right lower quadrant to suggest appendicitis.. VASCULAR: Unremarkable. LYMPH NODES/PERITONEUM: No lymphadenopathy. FREE FLUID: None. BLADDER: Unremarkable. PELVIC VISCERA: A 6.1 cm simple appearing left ovarian cyst, recommend follow-up ultrasound in 6-12 weeks. OSSEOUS STRUCTURES: Unremarkable. CT/CT abdomen pelvis w IV con IMPRESSION: Subtle pericolonic and mesenteric fat stranding, nonspecific but may be reactive in the setting of colitis/enteritis, recommend collection clinical symptoms. Nonspecific periportal edema. A 6.1 cm simple appearing left ovarian cyst, recommend follow-up pelvic ultrasound in 6-12 weeks.
[2023-02-01 09:34] VITALS: BP 110/72; PULSE 62; RESP 16; TEMP 36.9; O2SAT 98; BMI 17.6
[2023-02-01 10:40] LABS: MANUAL DIFF FLAG NO
[2023-02-01 10:42] LABS: Appearance Urine Clear; Basophils Absolute Auto 0.1 X10*3/uL (0.0-0.2); Basophils Percent Auto 0.8 % (0-2); Color Urine Yellow; Eosinophils Percent Auto 0.1 % (0-4); Glucose Urine UA Negative (Negative); Hematocrit 43.3 % (37.0-47.0); Hemoglobin 14.6 g/dl (12.0-16.0); Imm Gran Abs Auto 0.03 X10*3/uL (0.00-0.03); Imm Gran Pct Auto 0.4 % (0.0-0.4); Leukocyte Esterase Urine Negative (Negative); Lymphocytes Absolute Auto 1.9 X10*3/uL (1.2-4.9); Lymphocytes Percent Auto 22.7 % (20-40); Mean Corpuscular HGB Conc 33.7 g/dl (31.0-35.0); Mean Corpuscular Hemoglobin 30.5 pg (27.0-33.0); Mean Corpuscular Volume 90.6 fL (80.0-98.0); Mean Platelet Volume 8.5 fL (9.4-12.3); Monocytes Absolute Auto 0.4 X10*3/uL (0.1-1.2); Monocytes Percent Auto 5.1 % (2-11); Neutrophils Absolute Auto 5.9 x10*3/uL (2.0-8.3); Neutrophils Percent Auto 70.9 % (45-73); Nitrite Urine Negative (Negative); PH 5.5 (5.0-9.0); Platelet Count 261 X10*3/uL (160-400); Red Blood Count 4.78 X10*6/uL (4.20-5.50); Red Cell Distribution Width 11.5 % (11.0-16.0); Specific Gravity - Urine <= 1.005 (1.005-1.025); Urine Blood Negative (Negative); Urine Ketones 15 mg/dL (Negative); Urine Protein Negative (Neg-Trace); White Blood Count 8.3 X10*3/uL (4.8-10.8)
--- NOTE | 2023-02-01 10:42 | ED_ITS ---
HPI - Nausea/Vomiting/Diarrhea General Chief complaint: Nausea/Vomiting/Diarrhea Stated complaint: abd pain Time Seen by Provider: 02/01/23 10:34 Source: patient Mode of arrival: ambulatory Limitations: no limitations History of Present Illness HPI Narrative: 22-year-old female with history of PCOS, Lyme disease here with complaints of abdominal pain described as cramping for the last 7 days with 3-4 episodes daily of liquid stool and nausea. Patient reports poor appetite. Also when she eats food she has more pain and nausea. She tells me that she believes she has lost about 15 lb over the last 1 month. She has no associated fevers or chills or urinary symptoms. She tells me she has been seen here several times for this and has had labs and received IV medication and felt improved enough to go home. She does tell me that the Zofran that she takes has helped with her nausea. She has had some intermittent anxiety but she feels this is not related to her symptoms. She tells me she was seen about a year ago at [facility] for similar symptoms and had lab work, endoscopy, colonoscopy which tells are all normal. She tells me that they told her this was related to her anxiety and states they told me not to come back unless i started anxiety medication. Associated nausea: Yes Related Data Previous Rx's Medication Instructions Recorded ondansetron HCl 4 mg tablet 4 mg PO Q6H PRN nausea and 06/23/21 (Zofran) vomiting #14 tabs lorazepam 0.5 mg tablet (Ativan) 0.5 mg PO Q6-8H PRN anxiety #7 tabs 11/16/21 ondansetron HCl 4 mg tablet 4 mg PO Q6H PRN nausea and 11/16/21 vomiting #10 tabs ondansetron 4 mg disintegrating 4 mg PO Q8H PRN nausea and 04/26/22 tablet vomiting #7 tabs lorazepam 0.5 mg tablet (Ativan) 0.5 mg PO TID PRN anxiety #10 tabs 05/21/22 ondansetron HCl 4 mg tablet 4 mg PO Q8H PRN nausea and 05/21/22 vomiting #20 tabs ondansetron 4 mg disintegrating 4 mg PO Q8H PRN nausea and 01/25/23 tablet vomiting #10 tabs famotidine 20 mg tablet (Pepcid) 20 mg PO DAILY #14 tabs 01/30/23 lorazepam 0.5 mg tablet (Ativan) 0.5 mg PO BID PRN anxiety #10 tabs 01/30/23 lorazepam 0.5 mg tablet (Ativan) 0.5 mg PO BID PRN anxiety #10 tabs 01/30/23 ondansetron 4 mg disintegrating 4 mg PO Q6H Nausea #10 tabs 01/30/23 tablet amoxicillin 875 mg-potassium 1 tab PO BID #14 tabs 02/01/23 clavulanate 125 mg tablet Allergies Allergy/AdvReac Type Severity Reaction Status Date / Time ciprofloxacin Allergy Intermediate Agitated Verified 02/01/23 09:38 escitalopram [From Lexapro] AdvReac Nausea and Verified 02/01/23 09:38 Vomiting Review of Systems Review of Systems: Yes all other systems are reviewed and are negative Constitutional: Constitutional: Reports no additional constitutional c omplaints, Denies body ache(s), Denies chills, Denies fever(s), Denies headache(s), Reports poor appetite and Denies weakness Eyes: Eyes: Reports no additional eye complaints and Denies change in vision ENT: Reports system reviewed and no additional complaints, except as documented, Denies dizziness, Denies headache(s), Denies nasal congestion, Denies nasal discharge and Denies neck pain Cardiovascular: Cardiovascular: Reports no additional cardiovascular co mplaints, Denies chest pain, Denies leg edema and Denies dyspnea Respiratory: Respiratory: Reports no additional respiratory complaints, Denies cough and Denies dyspnea Gastrointestinal: Gastrointestinal: Reports no additional gastrointestinal complaints, Reports abdominal pain, Reports diarrhea, Reports nausea and Reports vomiting Genitourinary: Genitourinary: Reports no additional female genitourinary complaints and Denies urinary incontinence Musculoskeletal: Musculoskeletal: Reports no additional musculoskeletal complaints, Denies back pain, Denies arthralgias, Denies joint swelling, Denies neck pain, Denies numbness and Denies tingling Integumentary/Breasts: Skin/Breast: Reports system reviewed and no additional complaints, except as docu and Denies rash Neurologic: Reports system reviewed and no additional complaints, except as documented, Denies Abnormal speech present, Denies dizziness, Denies headache(s), Denies numbness, Denies tingling and Denies weakness PMFSH Past Medical History Attestation statement: The following information was validated with the patient. Source: old records reviewed and nursing notes reviewed Medical History Patient denies significant medical history Social History Social History Patient Tobacco Use Status: Never used Tobacco Substance Use Type: Marijuana Advance Directives: No Advance Directives Information Provided: No Physical Exam Vital Signs: Vital Signs: Last Vital Signs Temp 98.5 F 02/01/23 09:34 Pulse 60 02/01/23 11:44 Resp 18 02/01/23 11:44 BP 109/64 02/01/23 11:44 Pulse Ox 100 02/01/23 11:44 O2 Del Method Room Air 02/01/23 11:44 BMI result Body Mass Index 17.6 Const: General: cooperative, healthy appearing, comfortable and no acute dist ress Orientation/consciousness: patient oriented x3 Limitations: no limitations HEENT: Head: Yes normal to inspection Ears: hearing grossly normal bilaterally General nose exam: Normal external nose present Face and sinus: Yes normal facial exam Mouth: Normal oral and palatal mucosa present Throat: Yes posterior oropharynx normal Eyes: General: appearance normal, both eyes and all related structures Pupils: Equal, round and reactive pupils present Neck: Neck: Yes normal visual inspection Chest: Chest palpation & inspection: normal inspection of the chest Resp: Effort & Inspection: normal respiratory effort Auscultation: clear to auscultation bilaterally Cardio: Rate: regular rate Rhythm: regular rhythm Peripheral pulses: Peripheral pulses 2+ throughout GI: Inspection: Yes normal to inspection Palpation (GI): Soft to palpation and Tenderness to palpation present (GI) (mid diffuse TTP) Auscultation: normal bowel sounds Back/Spine/Pelvis: Thoracic/Lumbar Spine: thoracic and lumbar spine normal to inspection Skin: General skin exam: no rashes or lesions noted Neuro: General: patient oriented x3, no focal motor deficits and normal sensation to monofilament Cranial nerves: Yes Equal, round and reactive pupils present Cognition (Neuro): normal cognition Speech: No Abnormal speech present Gait exam (Neuro): Normal gait present Motor exam (neuro): 5/5 motor strength present throughout Extrem: General: Yes normal to inspection Course Course Course Narrative: CT is consistent with colitis. Patient's labs are within normal limits. Her stool studies were sent. Her GI panel is pending. Her C diff is negative. Chao ocampo is tolerating p.o.. I do believe that she will need to follow up with GI as she has had some weight loss with this and may need additional imaging such as a colonoscopy to r/o IBD I explained this to patient and her family. They are comfortable with plan for discharge home. Medications Administered Discontinued Medications Generic Name Dose Route Start Last Admin Trade Name Rambo PRN Reason Stop Dose Admin Sodium Chloride 1,000 mls @ 999 mls/hr 02/01/23 10:50 02/01/23 12:43 Ns IV 02/01/23 11:50 Infused .Q1H1M STA Infusion Iohexol 100 ml 02/01/23 12:33 02/01/23 12:34 Iohexol 350 Mg/Ml 100 Ml Infus..Btl IV 02/01/23 12:34 85 ml ONCE ONE Administration Medical Decision Making Medical Decision Making MDM Narrative: 22yo female who has a history of abdominal pain who presents to the ER with complaints of diarrhea, intermittent abdominal pain, nausea, poor appetite, weight loss of last 7 days. Patient tells me she has been seen in the ER twice this week for similar symptoms and has had labs and has been sent home with Zofran, lorazepam and famotidine. Patient tells me that the Zofran does help her nausea. She does not feel this is related to her anxiety so she has not tried taking the lorazepam. She has been taking the famotidine but feels it is not helping. She has had this pain in the past has been seen by GI with extensive workup about a year ago. Patient tells me that everything was negative and they felt this was related to her anxiety. On exam patient has mild diffuse tenderness. No rebound or guarding. Vitals are stable. As this is patient's 1st visit I do believe we should consider getting advanced imaging. I will also repeat labs, UA, stool studies Patient will have IVF. Differential Diagnosis Differential Diagnoses: The differential diagnosis associated with the presentation includes colitis, divert, appy, infectious diarrhea, IBD Consult Healthcare Provider Management of the patient was discussed with: Plush Brusher D/t colitis seen on CT with weight loss I considered underlying IBD and may need further outpatient w/u. I did speak to Dr Mari after the patient was discharged and he recommended if patient returns with intractable symptoms she should be admitted for further w/u. Lab Data MDM Lab Attestation statement: I reviewed the patient's lab results. 02/01/23 10:36 02/01/23 10:36 Labs: Lab Results 02/01/23 02/01/23 02/01/23 Range/Units 10:36 10:36 10:36 WBC 8.3 (4.8-10.8) X10*3/uL RBC 4.78 (4.20-5.50) X10*6/uL Hgb 14.6 (12.0-16.0) g/dl Hct 43.3 (37.0-47.0) % MCV 90.6 (80.0-98.0) fL MCH 30.5 (27.0-33.0) pg MCHC 33.7 (31.0-35.0) g/dl RDW 11.5 (11.0-16.0) % Plt Count 261 (160-400) X10*3/uL MPV 8.5 L (9.4-12.3) fL Immature Gran % (Auto) 0.4 (0.0-0.4) % Neut % (Auto) 70.9 (45-73) % Lymph % (Auto) 22.7 (20-40) % [place] % (Auto) 5.1 (2-11) % Eos % (Auto) 0.1 (0-4) % Baso % (Auto) 0.8 (0-2) % Lymph # (Auto) 1.9 (1.2-4.9) X10*3/uL [place] # (Auto) 0.4 (0.1-1.2) X10*3/uL Eos # (Auto) 0.0 (0.0-0.4) X10*3/uL Baso # (Auto) 0.1 (0.0-0.2) X10*3/uL Abs Immat Gran (auto) 0.03 (0.00-0.03) X10*3/uL Absolute Neuts (auto) 5.9 (2.0-8.3) x10*3/uL Absolute Nucleated RBC 0.000 (0.0-0.012) X10*3/uL Nucleated RBC % (auto) 0.0 (0.0-0.2) /100WBC Sodium 141 (135-145) mmol/L Potassium 3.9 (3.3-5.1) mmol/L Chloride 107 (96-108) mmol/L Carbon Dioxide 26 (22-29) mmol/L Anion Gap 12 (12-20) BUN 7 L (9-16) mg/dL Creatinine 0.85 (0.5-1.4) mg/dL Estim Creat Clear Calc 75.6 Estimated GFR > 60 Random Glucose 92 (60-115) mg/dL Calcium 9.2 (8.4-10.2) mg/dL Magnesium 2.0 (1.6-2.6) mg/dL Total Bilirubin 1.8 H (0.0-1.0) mg/dL AST 12 (5-31) U/L ALT 7 (0-31) U/L Alkaline Phosphatase 40 (39-117) U/L Total Protein 6.9 (6.5-8.0) g/dL Albumin 4.7 (3.5-5.0) g/dL Lipase 18 (8-78) U/L Beta HCG, Quant 3 mIU/mL Urine Color Yellow Urine Appearance Clear Urine pH 5.5 (5.0-9.0) Ur Specific [place] <= 1.005 (1.005-1.025) Urine Protein Negative (Neg-Trace) mg/dL Urine Glucose (UA) Negative (Negative) mg/dL Urine Ketones 15 (Negative) mg/dL Urine Blood Negative (Negative) Urine Nitrite Negative (Negative) Ur Leukocyte Esterase Negative (Negative) C. difficile Tox B Gene (Negative) 02/01/23 Range/Units 11:17 WBC (4.8-10.8) X10*3/uL RBC (4.20-5.50) X10*6/uL Hgb (12.0-16.0) g/dl Hct (37.0-47.0) % MCV (80.0-98.0) fL MCH (27.0-33.0) pg MCHC (31.0-35.0) g/dl RDW (11.0-16.0) % Plt Count (160-400) X10*3/uL MPV (9.4-12.3) fL Immature Gran % (Auto) (0.0-0.4) % Neut % (Auto) (45-73) % Lymph % (Auto) (20-40) % [place] % (Auto) (2-11) % Eos % (Auto) (0-4) % Baso % (Auto) (0-2) % Lymph # (Auto) (1.2-4.9) X10*3/uL [place] # (Auto) (0.1-1.2) X10*3/uL Eos # (Auto) (0.0-0.4) X10*3/uL Baso # (Auto) (0.0-0.2) X10*3/uL Abs Immat Gran (auto) (0.00-0.03) X10*3/uL Absolute Neuts (auto) (2.0-8.3) x10*3/uL Absolute Nucleated RBC (0.0-0.012) X10*3/uL Nucleated RBC % (auto) (0.0-0.2) /100WBC Sodium (135-145) mmol/L Potassium (3.3-5.1) mmol/L Chloride (96-108) mmol/L Carbon Dioxide (22-29) mmol/L Anion Gap (12-20) BUN (9-16) mg/dL Creatinine (0.5-1.4) mg/dL Estim Creat Clear Calc Estimated GFR Random Glucose (60-115) mg/dL Calcium (8.4-10.2) mg/dL Magnesium (1.6-2.6) mg/dL Total Bilirubin (0.0-1.0) mg/dL AST (5-31) U/L ALT (0-31) U/L Alkaline Phosphatase (39-117) U/L Total Protein (6.5-8.0) g/dL Albumin (3.5-5.0) g/dL Lipase (8-78) U/L Beta HCG, Quant mIU/mL Urine Color Urine Appearance Urine pH (5.0-9.0) Ur Specific [place] (1.005-1.025) Urine Protein (Neg-Trace) mg/dL Urine Glucose (UA) (Negative) mg/dL Urine Ketones (Negative) mg/dL Urine Blood (Negative) Urine Nitrite (Negative) Ur Leukocyte Esterase (Negative) C. difficile Tox B Gene NEGATIVE (Negative) Independent Interpretation I performed an independent interpretation of an: CT Scan Interpretation: I independently reviewed the CT scan agree with radiologist's report Radiology Impression Discussion of test interpretation with radiology: I have reviewed the radiologist's reading. Radiologist Impression: FINDINGS: LUNG BASES: Unremarkable.? ABDOMINAL AND PELVIC WALL:? Unremarkable.? LIVER AND BILIARY TREE: Nonspecific periportal edema.? GALLBLADDER: Unremarkable.? PANCREAS: Unremarkable.? SPLEEN: Unremarkable.? ADRENAL GLANDS: Unremarkable.? KIDNEYS AND URETERS: Circumaortic left renal vein.? GASTROINTESTINAL TRACT: Subtle pericolonic and mesenteric fat stranding for example along the ascending colon, 3:40 and sigmoid colon, 3:60. The appendix is not identified with certainty, however there is no dilated tubular structure in the right lower quadrant to suggest appendicitis.. VASCULAR: Unremarkable. LYMPH NODES/PERITONEUM: No lymphadenopathy. FREE FLUID: None. BLADDER: Unremarkable.? PELVIC VISCERA: A 6.1 cm simple appearing left ovarian cyst, recommend follow-up ultrasound in 6-12 weeks. OSSEOUS STRUCTURES: Unremarkable.? CT/CT abdomen pelvis w IV con IMPRESSION: ? Subtle pericolonic and mesenteric fat stranding, nonspecific but may be reactive in the setting of colitis/enteritis, recommend collection clinical symptoms. ? Nonspecific periportal edema. ? A 6.1 cm simple appearing left ovarian cyst, recommend follow-up pelvic ultrasound in 6-12 weeks. Discharge Plan Discharge Clinical Impression: Colitis Patient Disposition: Home, Self-Care Instructions: Colitis (ED) Additional Instructions: Take the antibiotic with food Follow-up with Gastroenterology Return for any intractable vomiting, fever greater than 100.4, increase in pain We did send stool studies and we will call you if these show any bacteria that needs additional treatment You also have an ovarian cyst. You should follow-up with gynecology in regards to this. Prescriptions: New amoxicillin-pot clavulanate 875-125 mg tablet 1 tab PO BID Qty: 14 0RF No Action ondansetron HCl [Zofran] 4 mg tablet 4 mg PO Q6H PRN (Reason: nausea and vomiting) Qty: 14 0RF lorazepam [Ativan] 0.5 mg tablet 0.5 mg PO TID PRN (Reason: anxiety) Qty: 10 0RF Rx Instructions: patient may ask for partial fill ondansetron HCl 4 mg tablet 4 mg PO Q8H PRN (Reason: nausea and vomiting) Qty: 20 0RF lorazepam [Ativan] 0.5 mg tablet 0.5 mg PO Q6-8H PRN (Reason: anxiety) Qty: 7 0RF Rx Instructions: This medication can cause drowsiness so no driving for 6 hours after taking ondansetron HCl 4 mg tablet 4 mg PO Q6H PRN (Reason: nausea and vomiting) Qty: 10 0RF ondansetron 4 mg tablet,disintegrating 4 mg PO Q8H PRN (Reason: nausea and vomiting) Qty: 7 0RF ondansetron 4 mg tablet,disintegrating 4 mg PO Q8H PRN (Reason: nausea and vomiting) Qty: 10 0RF lorazepam [Ativan] 0.5 mg tablet 0.5 mg PO BID PRN (Reason: anxiety) Qty: 10 0RF famotidine [Pepcid] 20 mg tablet 20 mg PO DAILY Qty: 14 0RF ondansetron 4 mg tablet,disintegrating 4 mg PO Q6H Qty: 10 0RF lorazepam [Ativan] 0.5 mg tablet 0.5 mg PO BID PRN (Reason: anxiety) Qty: 10 0RF Referrals: Trevor Mari MD [Physician] - 5 days Interventions: ED Discharge Assessment Last Done: 02/01/23 13:25 Discharge Date/Time: 02/01/23 13:25
[2023-02-01 11:12] LABS: Alanine Aminotransferase 7 U/L (0-31); Albumin Level 4.7 g/dL (3.5-5.0); Alkaline Phosphatase 40 U/L (39-117); Anion Gap 12 (12-20); Aspartate Amino Transferase 12 U/L (5-31); Bilirubin Total 1.8 mg/dL (0.0-1.0); Blood Urea Nitrogen 7 mg/dL (9-16); Calcium 9.2 mg/dL (8.4-10.2); Carbon Dioxide 26 mmol/L (22-29); Chloride 107 mmol/L (96-108); Creatinine Clr Calc Pharmacy 75.6; Estimated Glomerular Filt Rate > 60; Glucose Random 92 mg/dL (60-115); HCG Quantitative 3 mIU/mL; Lipase 18 U/L (8-78); Potassium 3.9 mmol/L (3.3-5.1); Sodium 141 mmol/L (135-145); Total Protein 6.9 g/dL (6.5-8.0)
[2023-02-01] MEDS: 0.9 % Sodium Chloride 1,000 ML 999 ML IV (11:14)
[2023-02-01 11:44] VITALS: BP 109/64; PULSE 60; RESP 18; O2SAT 100
--- NOTE | 2023-02-01 12:21 | PC.NURSE ---
Pt back from CT scan, call will within reach.
[2023-02-01] MEDS: iohexoL 350 MG/ML 100 ML INFUS..BTL IV (12:34)
[2023-02-01 12:38] LABS: CDiff Gene PCR NEGATIVE (Negative)
[2023-02-01 14:39] LABS: Adenovirus F 40/41 Not Detected (Not Detect.); Astrovirus Not Detected (Not Detect.); Campylobacter Not Detected (Not Detect.); Cryptosporidium Not Detected (Not Detect.); Cyclospora cayetanensis Not Detected (Not Detect.); E. coli EAEC Not Detected (Not Detect.); E. coli EPEC Not Detected (Not Detect.); E. coli ETEC Not Detected (Not Detect.); E. coli STEC Not Detected (Not Detect.); Entamoeba histolytica Not Detected (Not Detect.); Giardia lamblia Not Detected (Not Detect.); Norovirus GI/GII Not Detected (Not Detect.); Plesiomonas shigelloides Not Detected (Not Detect.); Rotavirus A Not Detected (Not Detect.); Salmonella Not Detected (Not Detect.); Sapovirus Not Detected (Not Detect.); Shigella sp./EIEC Not Detected (Not Detect.); Vibrio Not Detected (Not Detect.); Vibrio Cholerae Not Detected (Not Detect.); Yersinia enterocolitica Not Detected (Not Detect.)
== END 2023-02-01 13:25 | disposition home or self-care (01) ==
PROVIDERS: Nurse Practitioner Family; Physician Assistant; Emergency Provider Emergency Medicine; PCP Student in an Organized Health Care Education/Training Program
DX: K52.9 Noninfective gastroenteritis and colitis, unspecified (principal); R11.0 Nausea; Z20.822 Contact with and (suspected) exposure to COVID-19; Z20.828 Contact with and (suspected) exposure to other viral communicable diseases; Z79.899 Other long term (current) drug therapy
CPT/HCPCS: 36415; 74177; 80053; 81003; 83690; 83735; 84702; 85025; 87493; 87507; 99284; Q9967

== ENCOUNTER → 2023-02-03 14:56 | Outpatient (BNVA) | payer BC, SELFPAY | PROVIDERS: Visit Provider Internal Medicine Gastroenterology | DX: Z13.89 Encounter for screening for other disorder (principal) ==

== ENCOUNTER 2023-02-16 10:29 | Emergency (ER) | payer BC, SELFPAY ==
[2023-02-16 10:48] VITALS: BP 100/63; PULSE 65; RESP 18; TEMP 36.6; O2SAT 98; BMI 16.9
[2023-02-16 11:12] LABS: MANUAL DIFF FLAG NO
[2023-02-16 11:17] LABS: Appearance Urine Clear; Color Urine Yellow; Glucose Urine UA Negative (Negative); Leukocyte Esterase Urine Negative (Negative); Nitrite Urine Negative (Negative); PH 5.5 (5.0-9.0); Specific Gravity - Urine 1.015 (1.005-1.025); Urine Blood Negative (Negative); Urine Ketones Trace mg/dL (Negative); Urine Protein Negative (Neg-Trace)
[2023-02-16 11:20] LABS: UPreg QC Valid YES; Urine Pregnancy NEGATIVE (NEGATIVE)
[2023-02-16 11:22] LABS: Basophils Absolute Auto 0.1 X10*3/uL (0.0-0.2); Basophils Percent Auto 1.3 % (0-2); Eosinophils Percent Auto 0.5 % (0-4); Hematocrit 45.7 % (37.0-47.0); Hemoglobin 15.6 g/dl (12.0-16.0); Imm Gran Abs Auto 0.01 X10*3/uL (0.00-0.03); Imm Gran Pct Auto 0.2 % (0.0-0.4); Lymphocytes Percent Auto 33.5 % (20-40); Mean Corpuscular HGB Conc 34.1 g/dl (31.0-35.0); Mean Corpuscular Volume 90.9 fL (80.0-98.0); Mean Platelet Volume 8.7 fL (9.4-12.3); Monocytes Absolute Auto 0.3 X10*3/uL (0.1-1.2); Monocytes Percent Auto 5.5 % (2-11); Neutrophils Absolute Auto 3.6 x10*3/uL (2.0-8.3); Platelet Count 246 X10*3/uL (160-400); Red Blood Count 5.03 X10*6/uL (4.20-5.50); Red Cell Distribution Width 11.5 % (11.0-16.0)
[2023-02-16 11:46] LABS: Alanine Aminotransferase 9 U/L (0-31); Albumin Level 4.7 g/dL (3.5-5.0); Alkaline Phosphatase 41 U/L (39-117); Anion Gap 14 (12-20); Aspartate Amino Transferase 14 U/L (5-31); Bilirubin Direct 0.5 mg/dL (0.0-0.5); Bilirubin Total 2.3 mg/dL (0.0-1.0); Blood Urea Nitrogen 8 mg/dL (9-16); Calcium 9.7 mg/dL (8.4-10.2); Carbon Dioxide 22 mmol/L (22-29); Chloride 107 mmol/L (96-108); Creatinine Clr Calc Pharmacy 70.9; Estimated Glomerular Filt Rate > 60; Glucose Random 99 mg/dL (60-115); Lipase 15 U/L (8-78); Potassium 4.2 mmol/L (3.3-5.1); Sodium 139 mmol/L (135-145); Total Protein 7.2 g/dL (6.5-8.0)
--- NOTE | 2023-02-16 13:37 | ED_ITS ---
HPI - Abdominal Pain General Chief Complaint: Abdominal Pain Stated Complaint: Vomiting/Abd pain Time Seen by Provider: 02/16/23 17:39 Related Data Previous Rx's Medication Instructions Recorded famotidine 20 mg tablet (Pepcid) 20 mg PO DAILY #14 tabs 01/30/23 lorazepam 0.5 mg tablet (Ativan) 0.5 mg PO BID PRN anxiety #10 tabs 01/30/23 ondansetron 4 mg disintegrating 4 mg PO Q6H Nausea #10 tabs 01/30/23 tablet amoxicillin 875 mg-potassium 1 tab PO BID #14 tabs 02/01/23 clavulanate 125 mg tablet peg-electrolyte solution 420 gram 240 ml PO Q10M #4,000 mL 02/03/23 oral solution Allergies Allergy/AdvReac Type Severity Reaction Status Date / Time ciprofloxacin Allergy Intermediate Agitated Verified 02/16/23 10:48 escitalopram [From Lexapro] AdvReac Nausea and Verified 02/16/23 10:48 Vomiting PMFSH Past Medical History Medical History Patient denies significant medical history Social History Social History Patient Tobacco Use Status: Never used Tobacco Substance Use Type: Marijuana Advance Directives: No Advance Directives Information Provided: No Physical Exam ED Vital Signs: Vital Signs - 24 hr 02/16/23 13:39 Temperature 97.5 F Pulse Rate 92 Respiratory Rate 18 Blood Pressure 132/85 Pulse Oximetry 98 Oxygen Delivery Method Room Air BMI result Body Mass Index 16.9 Course Course Course Narrative: RME- 22 yo female presents to the ER for evaluation of nausea, vomiting, diarrhea and abdominal pain for the last 1 month. Seen here on 02/01 and complete a course of antibiotics for colitis. Seen by Dr. Mari on 02/03 with plan for EGD and colonoscopy. This is her 4th ER visit for the same symptoms. Her pain is 8/10. She has daily nausea and vomits every 2-3 days with ongoing diarrhea. Patient does not feel comfortable going home with her current symptoms. Plan: will need to f/u with GI and see if they recommend admission for sooner EGD/Colonoscopy, ?repeat imaging Reevaluation(s) Reevaluation #1: patient eloped from the ER Medical Decision Making Lab Data 02/16/23 11:05 02/16/23 11:05 Labs: Lab Results 02/16/23 02/16/23 02/16/23 Range/Units 11:05 11:05 11:05 WBC 6.0 (4.8-10.8) X10*3/uL RBC 5.03 (4.20-5.50) X10*6/uL Hgb 15.6 (12.0-16.0) g/dl Hct 45.7 (37.0-47.0) % MCV 90.9 (80.0-98.0) fL MCH 31.0 (27.0-33.0) pg MCHC 34.1 (31.0-35.0) g/dl RDW 11.5 (11.0-16.0) % Plt Count 246 (160-400) X10*3/uL MPV 8.7 L (9.4-12.3) fL Immature Gran % (Auto) 0.2 (0.0-0.4) % Neut % (Auto) 59.0 (45-73) % Lymph % (Auto) 33.5 (20-40) % [place] % (Auto) 5.5 (2-11) % Eos % (Auto) 0.5 (0-4) % Baso % (Auto) 1.3 (0-2) % Lymph # (Auto) 2.0 (1.2-4.9) X10*3/uL [place] # (Auto) 0.3 (0.1-1.2) X10*3/uL Eos # (Auto) 0.0 (0.0-0.4) X10*3/uL Baso # (Auto) 0.1 (0.0-0.2) X10*3/uL Abs Immat Gran (auto) 0.01 (0.00-0.03) X10*3/uL Absolute Neuts (auto) 3.6 (2.0-8.3) x10*3/uL Absolute Nucleated RBC 0.000 (0.0-0.012) X10*3/uL Nucleated RBC % (auto) 0.0 (0.0-0.2) /100WBC Sodium 139 (135-145) mmol/L Potassium 4.2 (3.3-5.1) mmol/L Chloride 107 (96-108) mmol/L Carbon Dioxide 22 (22-29) mmol/L Anion Gap 14 (12-20) BUN 8 L (9-16) mg/dL Creatinine 0.87 (0.5-1.4) mg/dL Estim Creat Clear Calc 70.9 Estimated GFR > 60 Random Glucose 99 (60-115) mg/dL Calcium 9.7 (8.4-10.2) mg/dL Total Bilirubin 2.3 H (0.0-1.0) mg/dL Direct Bilirubin 0.5 (0.0-0.5) mg/dL AST 14 (5-31) U/L ALT 9 (0-31) U/L Alkaline Phosphatase 41 (39-117) U/L Total Protein 7.2 (6.5-8.0) g/dL Albumin 4.7 (3.5-5.0) g/dL Lipase 15 (8-78) U/L Urine Color Yellow Urine Appearance Clear Urine pH 5.5 (5.0-9.0) Ur Specific [place] 1.015 (1.005-1.025) Urine Protein Negative (Neg-Trace) mg/dL Urine Glucose (UA) Negative (Negative) mg/dL Urine Ketones Trace (Negative) mg/dL Urine Blood Negative (Negative) Urine Nitrite Negative (Negative) Ur Leukocyte Esterase Negative (Negative) Urine Test (NEGATIVE) 02/16/23 Range/Units 11:05 WBC (4.8-10.8) X10*3/uL RBC (4.20-5.50) X10*6/uL Hgb (12.0-16.0) g/dl Hct (37.0-47.0) % MCV (80.0-98.0) fL MCH (27.0-33.0) pg MCHC (31.0-35.0) g/dl RDW (11.0-16.0) % Plt Count (160-400) X10*3/uL MPV (9.4-12.3) fL Immature Gran % (Auto) (0.0-0.4) % Neut % (Auto) (45-73) % Lymph % (Auto) (20-40) % [place] % (Auto) (2-11) % Eos % (Auto) (0-4) % Baso % (Auto) (0-2) % Lymph # (Auto) (1.2-4.9) X10*3/uL [place] # (Auto) (0.1-1.2) X10*3/uL Eos # (Auto) (0.0-0.4) X10*3/uL Baso # (Auto) (0.0-0.2) X10*3/uL Abs Immat Gran (auto) (0.00-0.03) X10*3/uL Absolute Neuts (auto) (2.0-8.3) x10*3/uL Absolute Nucleated RBC (0.0-0.012) X10*3/uL Nucleated RBC % (auto) (0.0-0.2) /100WBC Sodium (135-145) mmol/L Potassium (3.3-5.1) mmol/L Chloride (96-108) mmol/L Carbon Dioxide (22-29) mmol/L Anion Gap (12-20) BUN (9-16) mg/dL Creatinine (0.5-1.4) mg/dL Estim Creat Clear Calc Estimated GFR Random Glucose (60-115) mg/dL Calcium (8.4-10.2) mg/dL Total Bilirubin (0.0-1.0) mg/dL Direct Bilirubin (0.0-0.5) mg/dL AST (5-31) U/L ALT (0-31) U/L Alkaline Phosphatase (39-117) U/L Total Protein (6.5-8.0) g/dL Albumin (3.5-5.0) g/dL Lipase (8-78) U/L Urine Color Urine Appearance Urine pH (5.0-9.0) Ur Specific [place] (1.005-1.025) Urine Protein (Neg-Trace) mg/dL Urine Glucose (UA) (Negative) mg/dL Urine Ketones (Negative) mg/dL Urine Blood (Negative) Urine Nitrite (Negative) Ur Leukocyte Esterase (Negative) Urine Test NEGATIVE (NEGATIVE) Discharge Plan Discharge Clinical Impression: Abdominal pain Patient Disposition: Elopement Prescriptions: No Action amoxicillin-pot clavulanate 875-125 mg tablet 1 tab PO BID Qty: 14 0RF famotidine [Pepcid] 20 mg tablet 20 mg PO DAILY Qty: 14 0RF ondansetron 4 mg tablet,disintegrating 4 mg PO Q6H Qty: 10 0RF lorazepam [Ativan] 0.5 mg tablet 0.5 mg PO BID PRN (Reason: anxiety) Qty: 10 0RF peg-electrolyte soln 420 gram recon soln 240 ml PO Q10M Qty: 4000 0RF Rx Instructions: until fecal effluent is clear; Discharge Date/Time: 02/16/23 20:05
[2023-02-16 13:39] VITALS: BP 132/85; PULSE 92; RESP 18; TEMP 36.4; O2SAT 98
== END 2023-02-16 20:05 | disposition left against medical advice (07) ==
PROVIDERS: Emergency Provider Emergency Medicine; PCP Student in an Organized Health Care Education/Training Program
DX: R10.9 Unspecified abdominal pain (principal); R11.10 Vomiting, unspecified; F12.90 Cannabis use, unspecified, uncomplicated; Z79.899 Other long term (current) drug therapy
CPT/HCPCS: 36415; 80048; 80076; 81003; 81025; 83690; 85025; 99282

== ENCOUNTER 2023-02-18 10:43 | Emergency (ER) | payer BC, SELFPAY ==
--- NOTE | ~2023-02-18 | CT_ITS ---
EXAMINATION: CT ABDOMEN AND PELVIS WITH CONTRAST CLINICAL INFORMATION: Left lower quadrant pain, diarrhea, weight loss. COMPARISON: None available. CT scan of the abdomen and pelvis dated 02/01/2023. TECHNIQUE: Multidetector volumetric images were obtained from the superior aspect of the liver through the pubic symphysis following administration 85 mL of Omnipaque 350 intravenous contrast. Sagittal and coronal reformatted images were obtained on the technologist's workstation. Oral contrast: No This CT examination was performed using dose optimization techniques as appropriate, variously including the following: *Automated exposure control *Adjustment of mA and/or kV according to patient size (this includes techniques or standardized protocols for targeted exams where dose is matched to indication/reason for exam; i.e. extremities or head) *Use of iterative reconstruction technique DLP: 266 mGy-cm FINDINGS: LUNG BASES: The visualized lung bases are unremarkable. LIVER, GALLBLADDER, AND BILIARY TREE: [place]. PANCREAS: Unremarkable. SPLEEN: Unremarkable. ADRENAL GLANDS: Unremarkable. KIDNEYS AND URETERS: The kidneys are normal in size, shape, and attenuation. No hydronephrosis, hydroureter, or calculi seen. No perinephric stranding. BLADDER: Unremarkable. GASTROINTESTINAL TRACT: The small and large bowel are unremarkable. The appendix is unremarkable. ABDOMINAL WALL: No significant hernia is appreciated. LYMPH NODES: Normal. VASCULAR: Unremarkable. PELVIC VISCERA: Anteverted/anteflexed uterus. No adnexal abnormality. OSSEOUS STRUCTURES: Unremarkable. CT/CT abdomen pelvis w IV con IMPRESSION: No acute intra-abdominal/pelvic abnormality to explain the patient's symptoms. Previously seen questionable colitis changes have resolved with overall interval improvement in colonic appearance. The previously seen simple left ovarian cyst has resolved as well.
[2023-02-18 11:17] VITALS: BP 95/65; PULSE 67; RESP 18; TEMP 36.6; O2SAT 98; BMI 16.8
[2023-02-18 11:49] LABS: MANUAL DIFF FLAG NO
[2023-02-18 11:50] LABS: Basophils Absolute Auto 0.1 X10*3/uL (0.0-0.2); Basophils Percent Auto 0.8 % (0-2); Eosinophils Percent Auto 0.2 % (0-4); Hematocrit 46.9 % (37.0-47.0); Hemoglobin 16.1 g/dl (12.0-16.0); Imm Gran Abs Auto 0.02 X10*3/uL (0.00-0.03); Imm Gran Pct Auto 0.2 % (0.0-0.4); Lymphocytes Absolute Auto 1.9 X10*3/uL (1.2-4.9); Lymphocytes Percent Auto 20.2 % (20-40); Mean Corpuscular HGB Conc 34.3 g/dl (31.0-35.0); Mean Corpuscular Hemoglobin 30.9 pg (27.0-33.0); Mean Platelet Volume 8.6 fL (9.4-12.3); Monocytes Absolute Auto 0.5 X10*3/uL (0.1-1.2); Monocytes Percent Auto 5.4 % (2-11); Neutrophils Absolute Auto 6.7 x10*3/uL (2.0-8.3); Neutrophils Percent Auto 73.2 % (45-73); Platelet Count 251 X10*3/uL (160-400); Red Blood Count 5.21 X10*6/uL (4.20-5.50); Red Cell Distribution Width 11.5 % (11.0-16.0); White Blood Count 9.2 X10*3/uL (4.8-10.8)
[2023-02-18 11:52] LABS: Appearance Urine Clear; Color Urine Yellow; Glucose Urine UA Negative (Negative); Leukocyte Esterase Urine Negative (Negative); Nitrite Urine Negative (Negative); PH 5.5 (5.0-9.0); Urine Blood Negative (Negative); Urine Ketones Negative (Negative); Urine Protein Negative (Neg-Trace)
[2023-02-18 11:53] LABS: UPreg QC Valid YES; Urine Pregnancy NEGATIVE (NEGATIVE)
[2023-02-18 12:04] LABS: Anion Gap 10 (12-20); Blood Urea Nitrogen 6 mg/dL (9-16); Calcium 9.9 mg/dL (8.4-10.2); Carbon Dioxide 31 mmol/L (22-29); Chloride 104 mmol/L (96-108); Creatinine Clr Calc Pharmacy 69.4; Estimated Glomerular Filt Rate > 60; Glucose Random 96 mg/dL (60-115); Potassium 3.9 mmol/L (3.3-5.1); Sodium 141 mmol/L (135-145)
--- NOTE | 2023-02-18 13:53 | ED_ITS ---
HPI - Nausea/Vomiting/Diarrhea General Chief complaint: Nausea/Vomiting/Diarrhea Stated complaint: vomiting, diarrhea, inflamed colon Time Seen by Provider: 02/18/23 13:44 History of Present Illness HPI Narrative: 22-year-old female who presents emergency department for evaluation of nausea vomiting and abdominal pain. The patient has been seen multiple times over the last month for similar complaints. Patient was seen on 01/25/23, 01/30/2023 and 02/01/2023. On 02/01/2023 she had a workup which included CT scan of the abdomen pelvis with IV contrast that revealed mild berry colic fat stranding of the ascending colon and sigmoid colon. She was treated for colitis with Augmentin b.i.d. x5 days. At that visit she also had a negative C diff and a negative GI panel. Patient states that she gets nausea vomiting diarrhea and abdominal pain frequently. She states that daily she has nausea which lasts all day. She complains of epigastric discomfort which she describes as a burning sensation. She also complains of left lower quadrant discomfort. She states that she vomits every 2-3 days and vomits 3 to 4 times a day. She states she has diarrhea daily, 2-3 episodes with which are loose, yellow with no blood. She states that she has lost weight and she used to weigh 117 lb now she weighs 95 lb. She states that she has not been able to eat or drink for several days seco ndary to her symptoms. Related Data Previous Rx's Medication Instructions Recorded famotidine 20 mg tablet (Pepcid) 20 mg PO DAILY #14 tabs 01/30/23 lorazepam 0.5 mg tablet (Ativan) 0.5 mg PO BID PRN anxiety #10 tabs 01/30/23 ondansetron 4 mg disintegrating 4 mg PO Q6H Nausea #10 tabs 01/30/23 tablet amoxicillin 875 mg-potassium 1 tab PO BID #14 tabs 02/01/23 clavulanate 125 mg tablet peg-electrolyte solution 420 gram 240 ml PO Q10M #4,000 mL 02/03/23 oral solution famotidine 20 mg tablet (Pepcid) 20 mg PO DAILY 30 days #30 tabs 02/18/23 ondansetron 4 mg disintegrating 4 mg PO Q6-8H PRN nausea and 02/18/23 tablet vomiting #30 tabs promethazine 25 mg rectal 25 mg RI Q6H PRN nausea and 02/18/23 suppository (Promethegan) vomiting #24 ea Allergies Allergy/AdvReac Type Severity Reaction Status Date / Time ciprofloxacin Allergy Intermediate Agitated Verified 02/18/23 11:17 escitalopram [From Lexapro] AdvReac Nausea and Verified 02/18/23 11:17 Vomiting Review of Systems Review of Systems: Yes all other systems are reviewed and are negative [facility] Past Medical History Attestation statement: The following information was validated with the patient. [facility] Narrative: Past medical history: Lyme disease 2021, PCOS, depression, anxiety. Past surgical history: Appendectomy social history: She denies tobacco, alcohol use. She smokes marijuana 4 times a a week and smokes 3 to 4 times a day when she smokes. Medical History Patient denies significant medical history Social History Social History Alcohol intake: never Patient Tobacco Use Status: Never used Tobacco Smoked in Last 30 Days: No Use of substances other than those prescribed or required for medical reasons: No Substance Use Type: Marijuana Advance Directives: No Advance Directives Information Provided: No Patient : No Physical Exam Vital Signs: Vital Signs: Last Vital Signs Temp 99.1 F 02/18/23 14:00 Pulse 71 02/18/23 14:00 Resp 18 02/18/23 16:00 BP 120/87 02/18/23 14:00 Pulse Ox 99 02/18/23 14:00 O2 Del Method Room Air 02/18/23 14:00 BMI result Body Mass Index 16.8 Const: Other: Very thin female patient, pleasant, cooperative, does not appear to be in distress, answers all questions appropriately HEENT: Head: Yes normal to inspection, Yes normocephalic and Yes atraumatic Ears: external ears normal General nose exam: Normal external nose present Face and sinus: Yes normal facial exam Mouth: Normal oral and palatal mucosa present Throat: Yes posterior oropharynx normal Eyes: General: appearance normal, both eyes and all related structures Pupils: Equal, round and reactive pupils present Neck: Neck: Yes normal visual inspection, Yes no lymphadenopathy, Yes trachea midline and Yes supple Chest: Chest palpation & inspection: normal inspection of the chest and normal palpation of entire chest wall Resp: Effort & Inspection: normal respiratory effort and able to speak in complete sentences Auscultation: clear to auscultation bilaterally Cardio: Rate: regular rate Rhythm: regular rhythm Heart sounds: S1 normal heart sound present, S2 normal heart sound present and no murmurs GI: Other: Moderate epigastric tenderness, mild to moderate left lower quadrant tenderness, normoactive bowel sounds, no distension, no rebound : General: Yes no CVA tenderness Back/Spine/Pelvis: Back: no CVA tenderness Skin: General skin exam: no rashes or lesions noted Neuro: Cranial nerves: Yes CN's II-XII intact bilaterally and Yes Equal, round and reactive pupils present Cognition (Neuro): normal cognition Motor exam (neuro): 5/5 motor strength present throughout Extrem: General: Yes normal to inspection Psych: Appearance: grossly normal Speech and movement: Normal speech and movement present Affect: normal affect Attitude: cooperative Thought process: Normal thought process present Thought content: Normal thought content present Medications Administered Generic Name Dose Route Start Last Admin Trade Name Freq PRN Reason Stop Dose Admin Lactated Ringer's 1,000 mls @ 999 mls/hr 02/18/23 17:00 02/18/23 17:10 Lr IV 02/18/23 18:00 999 mls/hr .Q1H1M SMILEY Administration Discontinued Medications Generic Name Dose Route Start Last Admin Trade Name Freq PRN Reason Stop Dose Admin Diphenhydramine HCl 25 mg 02/18/23 16:54 02/18/23 17:10 Diphenhydramine Hcl 50 Mg/Ml Vial IVPUSH 02/18/23 16:55 25 mg ONCE ONE Administration Sodium Chloride 1,000 mls @ 999 mls/hr 02/18/23 14:18 02/18/23 15:52 Ns IV 02/18/23 15:18 Infused .Q1H1M STA Infusion Iohexol 85 ml 02/18/23 15:32 02/18/23 15:33 Iohexol 350 Mg/Ml 100 Ml Infus..Btl IV 02/18/23 15:33 85 ml ONCE ONE Administration Ketorolac Tromethamine 15 mg 02/18/23 14:18 02/18/23 15:02 Ketorolac Tromethamine 15 Mg/Ml Vial IVPUSH 02/18/23 14:19 15 mg ONCE STA Administration Metoclopramide HCl 10 mg 02/18/23 16:54 02/18/23 17:11 Metoclopramide Hcl 10 Mg/2 Ml Vial IVPUSH 02/18/23 16:55 10 mg ONCE STA Administration Ondansetron HCl 4 mg 02/18/23 14:18 02/18/23 15:02 Ondansetron Hcl 4 Mg/2 Ml Vial IVPUSH 02/18/23 14:19 4 mg ONCE ONE Administration Medical Decision Making Medical Decision Making [facility] [place] Narrative: 22-year-old female with history of depression, anxiety, multiple ED visits over the last month for abdominal pain, nausea, vomiting and diarrhea with similar presentations in the past with negative GI workups. The patient states that she has not been able to eat or drink for several days secondary to her symptoms. Vital signs were unremarkable. Exam did reveal epigastric and left lower quadrant tenderness. I ordered CBC, BMP, liver panel, lipase, urinalysis, C diff, GI panel, urinalysis, quantitative beta-hCG. CT scan of the abdomen pelvis IV contrast were obtained. 1742: My interpretation patient's laboratory evaluation is as follows: CBC was normal. Bicarb was elevated 31. Total bilirubin was elevated 3.3. Direct bilirubin was 0.6. Urinalysis was negative. Quantitative beta-hCG was negative. CT scan of the abdomen pelvis IV contrast revealed no abnormality to explain the patient's pain, the pericolic fat stranding seen on the previous CT scan resolved. The patient is scheduled for a GI workup on 02/26/2023 to include endoscopy and colonoscopy. At this time I believe that her symptoms are more consistent with cyclic vomiting syndrome possibly related to her cannabis use and I did discuss this with her. The patient will be discharged home with prescriptions for Zofran ODT and Phenergan suppositories. She was also restarted on Pepcid 20 mg daily. Patient was given printed and verbal instructions discharged home. Differential Diagnosis Differential diagnosis includes was not limited to ulcerative colitis, Crohn disease, gastroenteritis, viral syndrome, anxiety, cyclic vomiting syndrome, cannabis hyperemesis syndrome Lab Data [facility] [place] Lab Attestation statement: I reviewed the patient's lab results. See [facility] [place] 02/18/23 11:43 02/18/23 11:43 Labs: Lab Results 0502/18/23 02/18/23 Range/Units 11:43 11:43 11:43 WBC 9.2 (4.8-10.8) X10*3/uL RBC 5.21 (4.20-5.50) X10*6/uL Hgb 16.1 H (12.0-16.0) g/dl Hct 46.9 (37.0-47.0) % MCV 90.0 (80.0-98.0) fL MCH 30.9 (27.0-33.0) pg MCHC 34.3 (31.0-35.0) g/dl RDW 11.5 (11.0-16.0) % Plt Count 251 (160-400) X10*3/uL MPV 8.6 L (9.4-12.3) fL Immature Gran % (Auto) 0.2 (0.0-0.4) % Neut % (Auto) 73.2 H (45-73) % Lymph % (Auto) 20.2 (20-40) % [place] % (Auto) 5.4 (2-11) % Eos % (Auto) 0.2 (0-4) % Baso % (Auto) 0.8 (0-2) % Lymph # (Auto) 1.9 (1.2-4.9) X10*3/uL [place] # (Auto) 0.5 (0.1-1.2) X10*3/uL Eos # (Auto) 0.0 (0.0-0.4) X10*3/uL Baso # (Auto) 0.1 (0.0-0.2) X10*3/uL Abs Immat Gran (auto) 0.02 (0.00-0.03) X10*3/uL Absolute Neuts (auto) 6.7 (2.0-8.3) x10*3/uL Absolute Nucleated RBC 0.000 (0.0-0.012) X10*3/uL Nucleated RBC % (auto) 0.0 (0.0-0.2) /100WBC Sodium 141 (135-145) mmol/L Potassium 3.9 (3.3-5.1) mmol/L Chloride 104 (96-108) mmol/L Carbon Dioxide 31 H (22-29) mmol/L Anion Gap 10 L (12-20) BUN 6 L (9-16) mg/dL Creatinine 0.88 (0.5-1.4) mg/dL Estim Creat Clear Calc 69.4 Estimated GFR > 60 Random Glucose 96 (60-115) mg/dL Calcium 9.9 (8.4-10.2) mg/dL Total Bilirubin 3.3 H (0.0-1.0) mg/dL Direct Bilirubin 0.6 H (0.0-0.5) mg/dL AST 14 (5-31) U/L ALT 9 (0-31) U/L Alkaline Phosphatase 42 (39-117) U/L Total Protein 7.3 (6.5-8.0) g/dL Albumin 4.8 (3.5-5.0) g/dL Lipase 17 (8-78) U/L Beta HCG, Quant 4 mIU/mL Urine Color Yellow Urine Appearance Clear Urine pH 5.5 (5.0-9.0) Ur Specific [place] 1.010 (1.005-1.025) Urine Protein Negative (Neg-Trace) mg/dL Urine Glucose (UA) Negative (Negative) mg/dL Urine Ketones Negative (Negative) mg/dL Urine Blood Negative (Negative) Urine Nitrite Negative (Negative) Ur Leukocyte Esterase Negative (Negative) Urine Test (NEGATIVE) 02/18/23 Range/Units 11:44 WBC (4.8-10.8) X10*3/uL RBC (4.20-5.50) X10*6/uL Hgb (12.0-16.0) g/dl Hct (37.0-47.0) % MCV (80.0-98.0) fL MCH (27.0-33.0) pg MCHC (31.0-35.0) g/dl RDW (11.0-16.0) % Plt Count (160-400) X10*3/uL MPV (9.4-12.3) fL Immature Gran % (Auto) (0.0-0.4) % Neut % (Auto) (45-73) % Lymph % (Auto) (20-40) % [place] % (Auto) (2-11) % Eos % (Auto) (0-4) % Baso % (Auto) (0-2) % Lymph # (Auto) (1.2-4.9) X10*3/uL [place] # (Auto) (0.1-1.2) X10*3/uL Eos # (Auto) (0.0-0.4) X10*3/uL Baso # (Auto) (0.0-0.2) X10*3/uL Abs Immat Gran (auto) (0.00-0.03) X10*3/uL Absolute Neuts (auto) (2.0-8.3) x10*3/uL Absolute Nucleated RBC (0.0-0.012) X10*3/uL Nucleated RBC % (auto) (0.0-0.2) /100WBC Sodium (135-145) mmol/L Potassium (3.3-5.1) mmol/L Chloride (96-108) mmol/L Carbon Dioxide (22-29) mmol/L Anion Gap (12-20) BUN (9-16) mg/dL Creatinine (0.5-1.4) mg/dL Estim Creat Clear Calc Estimated GFR Random Glucose (60-115) mg/dL Calcium (8.4-10.2) mg/dL Total Bilirubin (0.0-1.0) mg/dL Direct Bilirubin (0.0-0.5) mg/dL AST (5-31) U/L ALT (0-31) U/L Alkaline Phosphatase (39-117) U/L Total Protein (6.5-8.0) g/dL Albumin (3.5-5.0) g/dL Lipase (8-78) U/L Beta HCG, Quant mIU/mL Urine Color Urine Appearance Urine pH (5.0-9.0) Ur Specific [place] (1.005-1.025) Urine Protein (Neg-Trace) mg/dL Urine Glucose (UA) (Negative) mg/dL Urine Ketones (Negative) mg/dL Urine Blood (Negative) Urine Nitrite (Negative) Ur Leukocyte Esterase (Negative) Urine Test NEGATIVE (NEGATIVE) Radiology Impression Discussion of test interpretation with radiology: I have reviewed the radiologist's reading. Discharge Plan Discharge Clinical Impression: Cyclic vomiting syndrome, Diarrhea, Abdominal pain, Vomiting Patient Disposition: Home, Self-Care Instructions: Cyclic Vomiting Syndrome (ED) Additional Instructions: Your blood work was unremarkable. You do have an elevated bilirubin but this is mainly indirect bilirubin and is not related to your abdominal pain. The CT scan of your abdomen pelvis with IV contrast was normal, there was no evidence of colitis on this CT scan. At this time I suspect that you have cyclic vomiting syndrome (cannabis hyperemesis syndrome) which is related to smoking marijuana. You need to stop smoking marijuana for at least 6 months for the symptoms to go away completely. 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 You should ask your biodiesel plant operations engineer if you can use magnesium citrate for the bowel prep as opposed to GoLYTELY to see if you tolerate magnesium citrate better. Take Zofran ODT 4 mg pills, 1 pill dissolved in your mouth every 8 hours as needed for nausea and vomiting. Insert Phenergan instructions Take Pepcid (famotidine) 20 mg pills, 1 pill once a day for 2 weeks. This medication reduces the amount of acid that your stomach produces and will help the inflammation in your stomach heal. Prescriptions: New promethazine [Promethegan] 25 mg suppository 25 mg RI Q6H PRN (Reason: nausea and vomiting) Qty: 24 0RF ondansetron 4 mg tablet,disintegrating 4 mg PO Q6-8H PRN (Reason: nausea and vomiting) Qty: 30 0RF famotidine [Pepcid] 20 mg tablet 20 mg PO DAILY 30 Days Qty: 30 0RF No Action amoxicillin-pot clavulanate 875-125 mg tablet 1 tab PO BID Qty: 14 0RF famotidine [Pepcid] 20 mg tablet 20 mg PO DAILY Qty: 14 0RF ondansetron 4 mg tablet,disintegrating 4 mg PO Q6H Qty: 10 0RF lorazepam [Ativan] 0.5 mg tablet 0.5 mg PO BID PRN (Reason: anxiety) Qty: 10 0RF peg-electrolyte soln 420 gram recon soln 240 ml PO Q10M Qty: 4000 0RF Rx Instructions: until fecal effluent is clear;
[2023-02-18 14:00] VITALS: BP 120/87; PULSE 71; RESP 16; TEMP 37.3; O2SAT 99
[2023-02-18 14:29] LABS: Alanine Aminotransferase 9 U/L (0-31); Albumin Level 4.8 g/dL (3.5-5.0); Alkaline Phosphatase 42 U/L (39-117); Aspartate Amino Transferase 14 U/L (5-31); Bilirubin Direct 0.6 mg/dL (0.0-0.5); Bilirubin Total 3.3 mg/dL (0.0-1.0); Lipase 17 U/L (8-78); Total Protein 7.3 g/dL (6.5-8.0)
[2023-02-18 14:31] LABS: HCG Quantitative 4 mIU/mL
[2023-02-18] MEDS: 0.9 % Sodium Chloride 1,000 ML 999 ML IV (15:01)
[2023-02-18] MEDS: ondansetron HCL 4 MG/2 ML VIAL IVPUSH (15:02)
[2023-02-18] MEDS: Ketorolac Tromethamine 15 MG/ML VIAL IVPUSH (15:02)
[2023-02-18] MEDS: iohexoL 350 MG/ML 100 ML INFUS..BTL 85 ML IV (15:33)
[2023-02-18 16:00] VITALS: RESP 18
[2023-02-18] MEDS: Lactated Ringers 1,000 ML 999 ML IV (17:10)
[2023-02-18] MEDS: diphenhydrAMINE HCL 50 MG/ML VIAL 25 MG IVPUSH (17:10)
[2023-02-18] MEDS: Metoclopramide HCl 10 MG/2 ML VIAL IVPUSH (17:11)
== END 2023-02-18 18:13 | disposition home or self-care (01) ==
PROVIDERS: Emergency Provider Emergency Medicine Emergency Medical Services; PCP Student in an Organized Health Care Education/Training Program
DX: R11.15 Cyclical vomiting syndrome unrelated to migraine (principal); R19.7 Diarrhea, unspecified; R10.9 Unspecified abdominal pain; R11.2 Nausea with vomiting, unspecified; F12.90 Cannabis use, unspecified, uncomplicated
CPT/HCPCS: 36415; 74177; 80048; 80076; 81003; 81025; 83690; 84702; 85025; 96361; 96374; 96375; 99285; J1200; J1885; J2405; J2765; Q9967

== ENCOUNTER 2023-02-26 10:36 | Day surgery (SDC) | payer BC, SELFPAY ==
--- NOTE | 2023-02-25 14:16 | HO.ANESPROP2 ---
Documented by User: Gaby Cruz NP 02/25/23 14:17 HPI - Anesthesia Eval Consult details Narrative: 22yo F for Upper Endoscopy and Colonoscopy PMFSH Active Problems Active Problems: All Active Problems (Updated 02/24/23 @ 14:20 by Ashley Ya RN) Genital herpes (Acute) Dysuria (Acute) Diarrhea (Acute) Past Medical History Medical History (Updated 02/24/23 @ 14:20 by Ashley Ya RN) Anxiety Hx of Lyme disease Social History Social History Alcohol intake: never Patient Tobacco Use Status: Never used Tobacco Substance Use Type: Marijuana Substance Use Frequency: Chronic Longstanding Are you DNR?: No Advance Directives: No Advance Directives Information Provided: Yes Nutrition Risks: No Nutritional Risk FDLMP: spotting on 02/10/23 Meds Allergies Allergy/AdvReac Type Severity Reaction Status Date / Time ciprofloxacin Allergy Intermediate Agitated Verified 02/18/23 11:17 escitalopram [From Lexapro] AdvReac Nausea and Verified 02/18/23 11:17 Vomiting Exam Exam Date and Time: February 25, 2023 1416 Pertinent Lab Results Pertinent Lab Results: Laboratory Tests 02/18/23 02/18/23 11:43 11:43 WBC 9.2 Hgb 16.1 H Hct 46.9 Plt Count 251 Sodium 141 Potassium 3.9 Chloride 104 Carbon Dioxide 31 H BUN 6 L Creatinine 0.88 Assessment and Plan Assessment Anesthesia Assessment: Chart Reviewed Documented by User: Azeb Bauer MD 02/26/23 10:58 PMFSH Past Medical History Medical History (Updated 02/24/23 @ 14:20 by Ashley Ya RN) Anxiety Hx of Lyme disease Family History Family history of problems with anesthesia: No Surgical History History of Problems with Anesthesia: No Social History Social History Alcohol intake: never Patient Tobacco Use Status: Never used Tobacco Substance Use Type: Marijuana Substance Use Frequency: Chronic Longstanding Are you DNR?: No Advance Directives: No Advance Directives Information Provided: Yes Nutrition Risks: No Nutritional Risk FDLMP: spotting on 02/10/23 Meds Allergies Allergy/AdvReac Type Severity Reaction Status Date / Time ciprofloxacin Allergy Intermediate Agitated Verified 02/18/23 11:17 escitalopram [From Lexapro] AdvReac Nausea and Verified 02/18/23 11:17 Vomiting Exam Airway Mallampati Class: II TM Dist: >3cm Neck ROM: Full Loose/Missing/Broken Teeth: No Heart: rr Lungs: cta Assessment and Plan Assessment Anesthesia Assessment: Anesthesia Plan Discussed Final Anesthetic Review Family History of Problems with Anesthesia: No History of Problems with Anesthesia: No NPO: Yes ASA Class: I Final Preanesthetic Review: No Changes in Pt Med Stat, Meds/Allgs Chart Reviewed, Consent Obtained/Reviewed and Anes Risks/Benef Reviewed Patient Risk: Low Procedure Risk: Low Anesthetic Plan Anesthetic Plan: MAC: Disposition: Standard PACU
[2023-02-26 10:46] VITALS: BMI 17.4
--- NOTE | 2023-02-26 10:54 | PC.NURSE ---
Dr. Mari updated that patient only drank one cup of her colon prep and stopped due to stomach hurting. Dr. Mari stated he will do EGD only today.
[2023-02-26 10:56] VITALS: BP 112/77; PULSE 110; RESP 18; TEMP 36.9; O2SAT 98
[2023-02-26 10:57] LABS: UPreg QC Valid YES; Urine Pregnancy NEGATIVE (NEGATIVE)
[2023-02-26] MEDS: Lactated Ringers 1,000 ML 100 ML IVCONT (11:02)
[2023-02-26 11:10] VITALS: PULSE 73
--- NOTE | 2023-02-26 11:59 | MHC.SHP ---
Pre-Procedural Eval Section A Date of Service: 02/26/23 The patient is an INPATIENT: No The History & Physical has been completed within 30 days and I have reviewed it.: Yes Section B Chief Complaint: Dysuria,Diarrhea,Noninfective gastroenteritis Allergies: Allergies Allergy/AdvReac Type Severity Reaction Status Date / Time ciprofloxacin Allergy Intermediate Agitated Verified 02/18/23 11:17 escitalopram [From Lexapro] AdvReac Nausea and Verified 02/18/23 11:17 Vomiting Plan Diagnosis/Plan: Unchanged I have reviewed the history and physical and performed a pertinent physical examination on my patient. No changes have occurred unless specified. EGD Time Spent With Patient Time: Total time managing care of this patient today ____ minutes.
--- NOTE | 2023-02-26 12:01 | W.PM.OPN ---
Operative Note Operative Note Date of Service: 02/26/23 Narrative: Procedure Description: EGD Indication: abdominal pain Anesthesia: MAC FLEXIBLE TRANSORAL UPPER GASTROINTESTINAL ENDOSCOPY UPPER ENDOSCOPY Consent: Indications for the procedure and potential complications of bleeding, perforation, reaction to medications and missed diagnosis were discussed with the patient and informed consent was obtained. Instrument: Olympus GIF H 190 J mid size upper endoscope Monitoring: Vital signs and clinical assessment, continuous EKG monitoring, Pulse oximetry, Carbon Dioxide monitoring and blood pressure monitoring were done throughout the procedure. Procedure: The patient was placed in the left lateral decubitis position and pre-procedure medications were administered and a bite block was placed. The endoscope was inserted into the mouth and advanced under direct vision to the third part of duodenum. A careful inspection was made as the upper endoscope was withdrawn including a retroflexed examination of the proximal stomach; Findings and interventions are described below. Findings: Larynx:normal Esophagus: GE junction at 40 cm, diaphragm hiatus at 40 cm, bogginess at GEJ, bx taken also from distal esophagus Stomach: Patchy gastric erythema. Biopsies were obtained. Grade 2 flap valve on retroflexed examination of the cardia. Duodenum: Normal bulb and descending duodenum, bx taken, the bulb seemed to be compressed externally Intervention: Biopsies as noted above Impression/Findings: mild esophagitis and gastritis possible extrinsic duodenal compression PLAN: doppler r/o SMA and celiac axis compression if H pylori pos then treat
[2023-02-26 12:04] VITALS: BP 104/59; PULSE 74; RESP 24; TEMP 36.6; O2SAT 96
[2023-02-26 12:19] VITALS: BP 107/74; PULSE 73; RESP 16; TEMP 36.6; O2SAT 99
== END 2023-02-26 13:06 | disposition home or self-care (01) ==
PROVIDERS: Nurse Practitioner; PCP Student in an Organized Health Care Education/Training Program; Visit Provider Internal Medicine Gastroenterology
PROC: (CPT 43239; principal; 2023-02-26 12:30)
DX: R10.31 Right lower quadrant pain (principal); G89.29 Other chronic pain; K52.9 Noninfective gastroenteritis and colitis, unspecified; K29.50 Unspecified chronic gastritis without bleeding; K20.80 Other esophagitis without bleeding; R30.0 Dysuria; K44.9 Diaphragmatic hernia without obstruction or gangrene; F41.1 Generalized anxiety disorder; Z86.19 Personal history of other infectious and parasitic diseases; Z88.1 Allergy status to other antibiotic agents; Z88.8 Allergy status to other drugs, medicaments and biological substances; F12.90 Cannabis use, unspecified, uncomplicated
CPT/HCPCS: 43239; 81025; 88305; 88342; J2250

== ENCOUNTER → 2023-03-30 09:58 | Outpatient (BNVA) | payer BC, SELFPAY | PROVIDERS: PCP Student in an Organized Health Care Education/Training Program; Visit Provider Internal Medicine Gastroenterology ==

== ENCOUNTER 2023-03-30 14:51 | Outpatient (REF) | payer BC, SELFPAY ==
[2023-04-01 12:09] LABS: H Pylori Breath Test Negative (Negative)
== END 2023-03-30 14:52 | disposition home or self-care (01) ==
LOC: HO.LNP 14:51
PROVIDERS: Visit Provider Internal Medicine Gastroenterology
DX: Z11.0 Encounter for screening for intestinal infectious diseases (principal)
CPT/HCPCS: 83013

== ENCOUNTER 2024-07-23 18:31 | Emergency (ER) | payer BC, SELFPAY ==
[2024-07-23 18:42] VITALS: BP 112/77; PULSE 85; RESP 16; TEMP 36.6; O2SAT 97; BMI 18.1
--- NOTE | 2024-07-23 18:47 | ED.GENADULT ---
HPI - General Adult General Chief complaint: Upper Respiratory Symptoms Stated complaint: flu like symptoms Time Seen by Provider: 07/23/24 18:50 Source: patient Mode of arrival: ambulatory Limitations: no limitations History of Present Illness ED Provider: DR. Garcia HPI narrative: 23-year-old female came in with her significant other for evaluation of same symptoms generalized body ache, sore throat, runny nose, sneezing, coughing, unable to taste or smell, fever and chills. Patient with history of Lyme disease as patient was treated patient is asking to be tested for Lyme disease. Related Data Previous Rx's ?Medication ?Instructions ?Recorded lorazepam 0.5 mg tablet (Ativan) 0.5 mg PO BID PRN anxiety #10 tabs 01/30/23 amoxicillin 875 mg-potassium 1 tab PO BID #14 tabs 02/01/23 clavulanate 125 mg tablet famotidine 20 mg tablet (Pepcid) 20 mg PO DAILY 30 days #30 tabs 02/18/23 ondansetron 4 mg disintegrating 4 mg PO Q6-8H PRN nausea and 02/18/23 tablet vomiting #30 tabs promethazine 25 mg rectal 25 mg NC Q6H PRN nausea and 02/18/23 suppository (Promethegan) vomiting #24 ea sodium sul 1.479 gram-potas ch 24 tab PO .once #24 tabs 02/26/23 0.188 gram-magnes sul 0.225 gram tablet (Sutab) peg-electrolyte solution 420 gram 240 ml PO Q10M #4,000 mL 03/09/23 oral solution Allergies Allergy/AdvReac Type Severity Reaction Status Date / Time ciprofloxacin Allergy Intermediate Agitated Verified 07/23/24 18:44 escitalopram [From Lexapro] AdvReac Nausea and Verified 07/23/24 18:44 Vomiting Review of Systems Review of Systems: all other systems are reviewed and are negative Constitutional: Reports as per HPI and Reports no additional constitutional complaints Eyes: Reports as per HPI and Reports no additional eye complaints Reports system reviewed and no additional complaints, except as documented Cardiovascular: Reports as per HPI and Reports no additional cardiovascular complaints Respiratory: Reports as per HPI and Reports no additional respiratory complaints Gastrointestinal: Reports as per HPI and Reports no additional gastrointestinal complaints Genitourinary: Reports no additional female genitourinary complaints Musculoskeletal: Reports no additional musculoskeletal complaints Skin/Breast: Reports system reviewed and no additional complaints, except as docu Psychiatric: Reports no additional psychiatric complaints Endocrine: Reports no additional endocrine complaints Hematologic/Lymphatic: Reports no additional hematologic/lymphatic complaints Allergic/Immunologic: Reports no additional allergic/immunologic complaints Reports system reviewed and no additional complaints, except as documented and Reports Abnormal speech present. ON LICENSE OF [facility] Past Medical History Medical History (Updated 07/23/24 @ 20:09 by Rola Garcia MD) Hx of Lyme disease Anxiety Surgical History (Updated 03/06/23 @ 14:42 by Vilma Saenz RN) Hx of colonoscopy Hx of appendectomy Hx of esophagogastroduodenoscopy Social History Social History Alcohol intake: never Patient Tobacco Use Status: Never used Tobacco Substance Use Type: Marijuana Advance Directives: No Advance Directives Information Provided: No Physical Exam ED Vital Signs: Vital Signs - 24 hr 07/23/24 18:42 Temperature 97.8 F Pulse Rate 85 Respiratory Rate 16 Blood Pressure 112/77 Pulse Oximetry 97 Oxygen Delivery Method Room Air BMI result Body Mass Index 18.1 Course Course Course Narrative: RME performed by Sarah Calzada PA-C. Patient is a 23 year old assigned female at presenting to the emergency department with a cough and feeling generally unwell. Detailed physical exam and review of systems are deferred to the central office maintainer. Swabs ordered. Patient placed back in the waiting room pending room availability and results. Reevaluation(s) Reevaluation #1: viral syndrome, patient is requesting be tested for Lyme disease. Patient was instructed to self isolate, use face mask at all times, frequent hand washing, social distancing, and follow-up with PCP. Time: 20:06 Medical Decision Making Differential Diagnosis Differential Diagnoses: The differential diagnosis associated with the presentation includes ( Check for Lyme disease, viral upper respiratory disease, strep pharyngitis.) Admission/Observation Consideration of admission/observation: Escalation of care including admission/observation considered Lab Data MDM Lab Attestation statement: I reviewed the patient's lab results. Labs: Lab Results 07/23/24 Range/Units 19:02 Influenza Type A (PCR) NEGATIVE (Negative) Influenza Type B (PCR) NEGATIVE (Negative) RSV RNA Qual (PCR) NEGATIVE (Negative) SARS-CoV-2 RNA (RT-PCR) NEGATIVE (Negative) S. pyogenes GrpA CHITRA Negative (Negative) Discharge Plan Discharge Clinical Impression: Viral infection Patient Disposition: Home, Self-Care Instructions: Viral Syndrome (ED) Additional Instructions: Wear face mask at all times, frequent hand wash, keep social distancing, self quarantine. Follow-up with your PCP. Prescriptions: No Action amoxicillin-pot clavulanate 875-125 mg tablet 1 tab PO BID Qty: 14 0RF Sutab 1.479-0.188- 0.225 gram tablet 24 tab PO .once Qty: 24 0RF Rx Instructions: colon prep lorazepam [Ativan] 0.5 mg tablet 0.5 mg PO BID PRN (Reason: anxiety) Qty: 10 0RF promethazine [Promethegan] 25 mg suppository 25 mg NC Q6H PRN (Reason: nausea and vomiting) Qty: 24 0RF ondansetron 4 mg tablet,disintegrating 4 mg PO Q6-8H PRN (Reason: nausea and vomiting) Qty: 30 0RF famotidine [Pepcid] 20 mg tablet 20 mg PO DAILY 30 Days Qty: 30 0RF peg-electrolyte soln 420 gram recon soln 240 ml PO Q10M Qty: 4000 0RF Rx Instructions: until fecal effluent is clear; Print Language: Cymraes
[2024-07-23 19:24] LABS: IDNOW Serial# 58CA691E; Strep A Nucleic Acid Negative (Negative)
[2024-07-23 19:54] LABS: Influenza A PCR NEGATIVE (Negative); Influenza B PCR NEGATIVE (Negative); Resp Syncy Virus RNA Qual PCR NEGATIVE (Negative); SARS COV2 PCR INHOUSE NEGATIVE (Negative)
[2024-07-23 20:45] VITALS: BP 112/77; PULSE 85; RESP 16; TEMP 36.6; O2SAT 97
[2024-07-25 18:18] LABS: Lyme Abs Screen <0.90 index
== END 2024-07-23 20:46 | disposition home or self-care (01) ==
PROVIDERS: Physician Assistant Medical; Emergency Provider Emergency Medicine; PCP Student in an Organized Health Care Education/Training Program
DX: B34.9 Viral infection, unspecified (principal); J02.9 Acute pharyngitis, unspecified; R05.9 Cough, unspecified; Z03.818 Encounter for observation for suspected exposure to other biological agents ruled out
CPT/HCPCS: 0241U; 36415; 86617; 86618; 87651; 99282; 99283

== ENCOUNTER 2024-08-14 21:32 | Emergency (ER) | payer BC, SELFPAY ==
[2024-08-14 21:38] VITALS: BP 110/69; PULSE 105; RESP 16; TEMP 36.3; O2SAT 97; BMI 18.4
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
[2024-08-14] MEDS: Ibuprofen 400 MG TABLET PO (22:18)
[2024-08-14 22:26] VITALS: BP 110/69; PULSE 105; RESP 16; TEMP 36.3; O2SAT 97
== END 2024-08-14 22:26 | disposition home or self-care (01) ==
PROVIDERS: Emergency Provider Internal Medicine; PCP Student in an Organized Health Care Education/Training Program
DX: S09.90XA Unspecified injury of head, initial encounter (principal); Y00.XXXA Assault by blunt object, initial encounter; Y93.89 Activity, other specified; Y92.488 Other paved roadways as the place of occurrence of the external cause; Y99.8 Other external cause status
CPT/HCPCS: 99283

== ENCOUNTER 2025-03-14 19:23 | Emergency (ER) | payer BC, SELFPAY ==
[2025-03-14 19:29] VITALS: BP 122/66; PULSE 70; RESP 16; TEMP 36.3; O2SAT 99; BMI 20.1
--- NOTE | 2025-03-14 19:29 | ED_ITS ---
HPI - General Adult General Chief complaint: Dental/Oral Stated complaint: Med Reaction? Vomiting, weekness Time Seen by Provider: 03/15/25 00:49 Source: patient Limitations: no limitations History of Present Illness ED Provider: Vilma Oconnor PA-C HPI narrative: 24-year-old female presents with dental pain for weeks. Patient has a pending follow up with her dentist, she has had insurance barriers. She was given azithromycin, it made her nauseous and vomit. This triggered her anxiety. History limited as the patient is currently hostile and belligerent. Related Data Previous Rx's ?Medication ?Instructions ?Recorded lorazepam 0.5 mg tablet (Ativan) 0.5 mg PO BID PRN anxiety #10 tabs 01/30/23 amoxicillin 875 mg-potassium 1 tab PO BID #14 tabs 02/01/23 clavulanate 125 mg tablet famotidine 20 mg tablet (Pepcid) 20 mg PO DAILY 30 days #30 tabs 02/18/23 ondansetron 4 mg disintegrating 4 mg PO Q6-8H PRN nausea and 02/18/23 tablet vomiting #30 tabs promethazine 25 mg rectal 25 mg FL Q6H PRN nausea and 02/18/23 suppository (Promethegan) vomiting #24 ea sodium sul 1.479 gram-potas ch 24 tab PO .once #24 tabs 02/26/23 0.188 gram-magnes sul 0.225 gram tablet (Sutab) peg-electrolyte solution 420 gram 240 ml PO Q10M #4,000 mL 03/09/23 oral solution ibuprofen 400 mg tablet 400 mg PO Q6H PRN pain #20 tabs 08/14/24 amoxicillin 875 mg-potassium 1 tab PO Q12H #19 tabs 03/15/25 clavulanate 125 mg tablet codeine sulfate 15 mg tablet 15 mg PO Q8H PRN pain #10 tabs 03/15/25 hydroxyzine HCl 50 mg tablet 50 mg PO TID PRN nausea and 03/15/25 vomiting #10 tabs Allergies Allergy/AdvReac Type Severity Reaction Status Date / Time ciprofloxacin Allergy Intermediate Agitated Verified 03/14/25 19:33 escitalopram [From Lexapro] AdvReac Nausea and Verified 03/14/25 19:33 Vomiting Review of Systems 2 Review of Systems: Unable to obtain due to the patient's current behaviors Yes all other systems are reviewed and are negative [facility] Past Medical History Attestation statement: The following information was validated with the patient. Medical History Hx of Lyme disease Anxiety Surgical History Hx of colonoscopy Hx of appendectomy Hx of esophagogastroduodenoscopy Social History Social History Alcohol intake: never Patient Tobacco Use Status: Never used Tobacco Smoked in Last 30 Days: No Use of substances other than those prescribed or required for medical reasons: No Substance Use Type: Marijuana Advance Directives: No Advance Directives Information Provided: Yes Do you have a plan to hurt others: No Plan Physical Exam ED Vital Signs: Vital Signs - 24 hr 03/14/25 19:29 03/15/25 01:08 Temperature 97.4 F 98.7 F Pulse Rate 70 57 Respiratory Rate 16 16 Blood Pressure 122/66 109/66 Pulse Oximetry 99 100 Oxygen Delivery Method Room Air Room Air BMI result Body Mass Index 20.1 Const Other: Alert HENMT Other: left lower 3rd molar is apparently infected/broken, per the triage note, unable to perform an exam, no trismus no drooling patient is speaking normally Neck Other: No swelling inferior to the jawline Resp Effort & Inspection: normal respiratory effort Cardio Other: Normal peripheral perfusion Skin Other: Warm dry no rash Course Course Course Narrative: This is a Rapid Medical Exam performed in triage by Rocio Rivero PA-C. Full HPI, ROS and PE to be performed by primary ED provider. 24 yo F presenting to the ED c/o dental pain x few weeks, admits to broken tooth. Saw Dentist & was Rx Azithromycin which caused abdominal pain, N/V, & lightheaded. Admits to increased anxiety PE: tearful, anxious, +left lower 3rd molar cracked, +ttp - difficult to examine Plan: Pain control, labs, ekg Medications Administered Discontinued Medications Generic Name Dose Route Start Last Admin Trade Name Freq PRN Reason Stop Dose Admin Acetaminophen 975 mg 03/14/25 22:48 03/14/25 22:51 Acetaminophen 325 Mg Tablet PO 03/14/25 22:49 975 mg ONCE ONE Administration Medical Decision Making Medical Decision Making [facility] Narrative: 24-year-old female presents with dental pain for weeks. Patient has a pending follow up with her dentist, she has had insurance barriers. She was given azithromycin, it made her nauseous and vomit. This triggered her anxiety. History limited as the patient is currently hostile and belligerent. Problem: Dental pain, anxiety History: Which is limited per patient I have considered the following differential diagnoses: Dental deng, dental abscess, fractured tooth, Oswald's Plan: Exam limited as the patient became quite hostile and belligerent, unable to visualize the affected tooth. However, she is speaking normally there was no trismus no drooling, there was no swelling inferior to the jawline. We will treat her pain and infection. I have independently reviewed the following tests: Labs: Slight leukocytosis, not anemic, no electrolyte abnormality, not , urine not infected Lab Data 03/14/25 20:32 03/14/25 20:32 Labs: Lab Results 03/14/25 Range/Units 20:32 WBC 12.7 H (4.8-10.8) X10*3/uL RBC 4.92 (4.20-5.50) X10*6/uL Hgb 15.8 (12.0-16.0) g/dl Hct 44.8 (37.0-47.0) % MCV 91.1 (80.0-98.0) fL MCH 32.1 (27.0-33.0) pg MCHC 35.3 H (31.0-35.0) g/dl RDW 11.4 (11.0-16.0) % Plt Count 233 (160-400) X10*3/uL MPV 8.6 L (9.4-12.3) fL Immature Gran % (Auto) 0.2 (0.0-0.4) % Neut % (Auto) 82.5 H (45-73) % Lymph % (Auto) 13.3 L (20-40) % Dewitt % (Auto) 3.5 (2-11) % Eos % (Auto) 0.1 (0-4) % Baso % (Auto) 0.4 (0-2) % Lymph # (Auto) 1.7 (1.2-4.9) X10*3/uL Dewitt # (Auto) 0.5 (0.1-1.2) X10*3/uL Eos # (Auto) 0.0 (0.0-0.4) X10*3/uL Baso # (Auto) 0.1 (0.0-0.2) X10*3/uL Abs Immat Gran (auto) 0.03 (0.00-0.03) X10*3/uL Absolute Neuts (auto) 10.5 H (2.0-8.3) x10*3/uL Absolute Nucleated RBC 0.000 (0.0-0.012) X10*3/uL Nucleated RBC % (auto) 0.0 (0.0-0.2) /100WBC Sodium 139 (135-145) mmol/L Potassium 3.8 (3.3-5.1) mmol/L Chloride 106 (96-108) mmol/L Carbon Dioxide 22 (22-29) mmol/L Anion Gap 15 (12-20) BUN 8 L (9-16) mg/dL Creatinine 0.70 (0.5-1.4) mg/dL Estim Creat Clear Calc 99.3 Estimated GFR > 60 Random Glucose 108 (60-115) mg/dL Calcium 9.5 (8.4-10.2) mg/dL Magnesium 2.0 (1.6-2.6) mg/dL Total Bilirubin 2.5 H (0.0-1.0) mg/dL Direct Bilirubin 0.6 H (0.0-0.5) mg/dL AST 21 (5-31) U/L ALT 15 (0-31) U/L Alkaline Phosphatase 40 (39-117) U/L Total Protein 7.5 (6.5-8.0) g/dL Albumin 5.0 (3.5-5.0) g/dL Urine Color Yellow Urine Appearance Clear Urine pH 5.5 (5.0-9.0) Ur Specific Prentiss 1.015 (1.005-1.025) Urine Protein Negative (Neg-Trace) mg/dL Urine Glucose (UA) Negative (Negative) mg/dL Urine Ketones 40 (Negative) mg/dL Urine Blood Negative (Negative) Urine Nitrite Negative (Negative) Ur Leukocyte Esterase Negative (Negative) Urine Test NEGATIVE (NEGATIVE) Discharge Plan Discharge Clinical Impression: Dental infection Patient Disposition: Home, Self-Care Instructions: Dental Abscess (ED) Additional Instructions: You are being treated for potential early dental abscess. See home care instructions. Take the Augmentin as directed this is an antibiotic to treat the infection. Use the hydroxyzine as needed for nausea and anxiety. Take the tramadol as needed for pain, you should alternate with the ibuprofen that you were prescribed. Be sure to follow up with your dentist as soon as you can. Prescriptions: New codeine sulfate 15 mg tablet 15 mg PO Q8H PRN (Reason: pain) Qty: 10 0RF Rx Instructions: Partial Fill upon patient request. amoxicillin-pot clavulanate 875-125 mg tablet 1 tab PO Q12H Qty: 19 0RF hydroxyzine HCl 50 mg tablet 50 mg PO TID PRN (Reason: nausea and vomiting) Qty: 10 0RF No Action amoxicillin-pot clavulanate 875-125 mg tablet 1 tab PO BID Qty: 14 0RF Sutab 1.479-0.188- 0.225 gram tablet 24 tab PO .once Qty: 24 0RF Rx Instructions: colon prep ibuprofen 400 mg tablet 400 mg PO Q6H PRN (Reason: pain) Qty: 20 0RF lorazepam [Ativan] 0.5 mg tablet 0.5 mg PO BID PRN (Reason: anxiety) Qty: 10 0RF promethazine [Promethegan] 25 mg suppository 25 mg FL Q6H PRN (Reason: nausea and vomiting) Qty: 24 0RF ondansetron 4 mg tablet,disintegrating 4 mg PO Q6-8H PRN (Reason: nausea and vomiting) Qty: 30 0RF famotidine [Pepcid] 20 mg tablet 20 mg PO DAILY 30 Days Qty: 30 0RF peg-electrolyte soln 420 gram recon soln 240 ml PO Q10M Qty: 4000 0RF Rx Instructions: until fecal effluent is clear; Print Language: Arabic
--- NOTE | 2025-03-14 19:34 | ECG_ITS ---
Test Reason : TOOTH PAIN/LIGHTHEADED Blood Pressure : */* mmHG Vent. Rate : 58 BPM Atrial Rate : 58 BPM P-R Int : 122 ms QRS Dur : 88 ms QT Int : 464 ms P-R-T Axes : 69 61 55 degrees QTcB Int : 455 ms Sinus bradycardia Otherwise normal ECG When compared with ECG of 25-Jan-2023 16:06, No significant change was found Referred By: Rocio Rivero Electronically Signed By: EDU MARQUEZ MD
[2025-03-14 20:39] LABS: MANUAL DIFF FLAG NO
[2025-03-14 20:41] LABS: Basophils Absolute Auto 0.1 X10*3/uL (0.0-0.2); Basophils Percent Auto 0.4 % (0-2); Eosinophils Percent Auto 0.1 % (0-4); Hematocrit 44.8 % (37.0-47.0); Hemoglobin 15.8 g/dl (12.0-16.0); Imm Gran Abs Auto 0.03 X10*3/uL (0.00-0.03); Imm Gran Pct Auto 0.2 % (0.0-0.4); Lymphocytes Absolute Auto 1.7 X10*3/uL (1.2-4.9); Lymphocytes Percent Auto 13.3 % (20-40); Mean Corpuscular HGB Conc 35.3 g/dl (31.0-35.0); Mean Corpuscular Hemoglobin 32.1 pg (27.0-33.0); Mean Corpuscular Volume 91.1 fL (80.0-98.0); Mean Platelet Volume 8.6 fL (9.4-12.3); Monocytes Absolute Auto 0.5 X10*3/uL (0.1-1.2); Monocytes Percent Auto 3.5 % (2-11); Neutrophils Absolute Auto 10.5 x10*3/uL (2.0-8.3); Neutrophils Percent Auto 82.5 % (45-73); Platelet Count 233 X10*3/uL (160-400); Red Blood Count 4.92 X10*6/uL (4.20-5.50); Red Cell Distribution Width 11.4 % (11.0-16.0); White Blood Count 12.7 X10*3/uL (4.8-10.8)
[2025-03-14 20:42] LABS: Appearance Urine Clear; Color Urine Yellow; Glucose Urine UA Negative (Negative); Leukocyte Esterase Urine Negative (Negative); Nitrite Urine Negative (Negative); PH 5.5 (5.0-9.0); Specific Gravity - Urine 1.015 (1.005-1.025); Urine Blood Negative (Negative); Urine Ketones 40 mg/dL (Negative); Urine Protein Negative (Neg-Trace)
[2025-03-14 20:46] LABS: UPreg QC Valid YES; Urine Pregnancy NEGATIVE (NEGATIVE)
[2025-03-14 20:55] LABS: Alanine Aminotransferase 15 U/L (0-31); Alkaline Phosphatase 40 U/L (39-117); Anion Gap 15 (12-20); Aspartate Amino Transferase 21 U/L (5-31); Bilirubin Direct 0.6 mg/dL (0.0-0.5); Bilirubin Total 2.5 mg/dL (0.0-1.0); Blood Urea Nitrogen 8 mg/dL (9-16); Calcium 9.5 mg/dL (8.4-10.2); Carbon Dioxide 22 mmol/L (22-29); Chloride 106 mmol/L (96-108); Creatinine Clr Calc Pharmacy 99.3; Estimated Glomerular Filt Rate > 60; Glucose Random 108 mg/dL (60-115); Potassium 3.8 mmol/L (3.3-5.1); Sodium 139 mmol/L (135-145); Total Protein 7.5 g/dL (6.5-8.0)
[2025-03-14] MEDS: Acetaminophen 325 MG TABLET 975 MG PO (22:51)
--- NOTE | 2025-03-14 22:52 | PC.NURSE ---
Patient very upset there is no bed available for her right now, yo I'm about to pop off on you right now . Explained to patient they will be brought back when there is a bed available. Offered tylenol for the pain, accepted by patient. Patient repeatedly leaving WR to stand outside w/ visitor.
[2025-03-15 01:08] VITALS: BP 109/66; PULSE 57; RESP 16; TEMP 37.1; O2SAT 100
--- NOTE | 2025-03-15 01:55 | PC.NURSE ---
patient called RN over due to pain. states she has been waiting a long time. this RN offered mortin. patient states she was already given Tylenol. again asked how long it would be until she sees provider. RN informed patient provider will be over as soon as they can. again RN offered mortin and patient told RN get the fuck out of here .
[2025-03-15] MEDS: Amoxicillin/Potassium Clav 875 MG TABLET PO (02:12)
[2025-03-15] MEDS: hydrOXYzine HCL 50 MG TABLET PO (02:12)
[2025-03-15] MEDS: traMADoL HCL 50 MG TABLET PO (02:12)
[2025-03-15 02:17] VITALS: BP 109/66; PULSE 57; RESP 16; TEMP 37.1; O2SAT 100
== END 2025-03-15 02:18 | disposition home or self-care (01) ==
PROVIDERS: Physician Assistant; Emergency Provider Emergency Medicine Emergency Medical Services
DX: K04.7 Periapical abscess without sinus (principal); K08.89 Other specified disorders of teeth and supporting structures; R11.2 Nausea with vomiting, unspecified; F41.9 Anxiety disorder, unspecified; F12.90 Cannabis use, unspecified, uncomplicated; Z79.899 Other long term (current) drug therapy
CPT/HCPCS: 36415; 80048; 80076; 81003; 81025; 83735; 85025; 93005; 99283; 99285

== ENCOUNTER → 2025-03-14 19:34 | Outpatient (BNV) | payer BC, SELFPAY | PROVIDERS: Emergency Provider Emergency Medicine Emergency Medical Services; Visit Provider Internal Medicine Cardiovascular Disease | DX: R00.1 Bradycardia, unspecified (principal) | CPT/HCPCS: 93010 ==